=== PATIENT | female | born 1935 | race African-American/Black ===

== ENCOUNTER 2018-01-27 08:57 | Outpatient (CLI) | payer MEDICARE, MEDICAID ==
--- NOTE | 2018-01-27 14:59 | MRI ---
MRI OF CERVICAL SPINE WITHOUT CONTRAST: Date: 01/27/18 HISTORY: Chronic neck pain radiating down the left arm and shoulder for 4-6 months. TECHNIQUE: Multiplanar, multisequence MR images were obtained of the cervical spine without contrast. FINDINGS: Generalized disc desiccation is seen. The vertebral bodies demonstrate normal height and alignment wi thout acute fracture or subluxation. The visualized cord demonstrates normal signal throughout. The craniocervical junction is unremarkabl e. The prevertebral and paraspinal soft tissues are unremarkable. C2-3: A small disc osteophyte complex is seen. No posterior facet arthrosis. Mild central canal sten osis. Mild right and moderate left neural foraminal stenosis. C3-4: A moderate disc osteophyte complex is associated with a superimposed central protrusion. Mild bilateral posterior facet arthrosis. Severe central canal stenosis. Moderate to severe bilateral neur al foraminal stenosis. C4-5: No significant bulge or protrusion. No posterior facet arthrosis. No central canal stenosis. N o neural foraminal stenosis. C5-6: A small disc osteophyte complex is seen. Mild left posterior facet arthrosis. Mild central can al stenosis. Moderate to severe left neural foraminal stenosis. Mild right neural foraminal stenosis. C6-7: A small disc osteophyte complex is seen. No posterior facet arthrosis. Mild central canal sten osis. Moderate right and mild left neural foraminal stenosis. C7-T1: A minimal generalized concentric disc bulge is associated with a disc osteophyte complex. No posterior facet arthrosis. No central canal stenosis. No neural foraminal stenosis. IMPRESSION: Degenerative changes of the cervical spine as above. POS: CET
== END 2018-01-27 08:58 | disposition home or self-care (01) ==
LOC: SCSMRI 08:57
PROVIDERS: ATTEND Psychiatry & Neurology Neurology
DX: M47.22 Other spondylosis with radiculopathy, cervical region (principal); G56.02 Carpal tunnel syndrome, left upper limb
CPT/HCPCS: 72141

== ENCOUNTER 2018-03-11 08:58 | Outpatient (CLI) | payer MEDICARE, MEDICAID ==
--- NOTE | 2018-03-11 14:29 | NM ---
NUCLEAR MEDICINE PARATHYROID SCINITIGRAPHY SPECT AND CT: Date: 03/11/18 HISTORY: 82-year-old female with primary hyperparathyroidism. TECHNIQUE: 25 mCi of technetium-99m sestamibi injected IV. Anterior, WHITMORE, and MALAGASY scintigraphic images of the upper chest, neck, and head, obtained immediately, at 1 hour, and at 2 hours. SPECT images obtained in 3 planes covering the same area. Noncontrast CT obtained, covering the same areas. SPECT-CT fusion images obtained. FINDINGS: There is a small focus of increased uptake on the immediate, 1 hour, and 2 hour scintigraphic images, in the region of the right hypopharynx. It is uncertain whether it is in the hypopharynx or in the r etropharyngeal space directly posterior to the hypopharynx, or the right prevertebral space. There is retained significantly increased activity involving much of the right lobe of the thyroid gl and. The left lobe of the thyroid gland has immediate uptake, but it washes out. IMPRESSION: 1. Two potential foci of parathyroid adenomas. 2. One of them is located either in the right hypopharynx, or more likely in the retropharyngeal spa ce directly posterior to the right hypopharynx (posterior to the right piriform sinus). This is a str mary candidate for ectopic parathyroid adenoma. 3. The other focus involves the right lobe of the thyroid gland, which could be a second parathyroid adenoma. POS: CARLY
== END 2018-03-11 08:59 | disposition home or self-care (01) ==
LOC: NM 08:58
PROVIDERS: ATTEND Internal Medicine Nephrology
DX: E83.52 Hypercalcemia (principal); E21.0 Primary hyperparathyroidism
CPT/HCPCS: 78072; A9500

== ENCOUNTER 2018-07-27 04:49 | Outpatient (CLI) | payer MEDICARE, MEDICAID ==
[2018-07-27 10:57] LABS: Hemoglobin 12.6 g/dL (12.0-16.0); Mean Corpuscular HGB CONC 33.4 g/dL (32.0-36.0); Mean Corpuscular Volume 86.8 fL (78.0-98.0); Mean Platelet Volume 8.2 fL (7.4-10.4); Platelet Count 239 thou/uL (130-400); RBC Distribution Width 13.1 % (11.5-14.5); Red Blood Cell (RBC) Count 4.34 mill/uL (4.20-5.40); White Blood Cell (WBC) Count 5.6 thou/uL (4.8-10.8)
[2018-07-27 11:27] LABS: Anion Gap 15 mmol/L (10-20); BUN (Urea Nitrogen) 27 mg/dL (9.8-20.1); Calc. Creatinine Clearance 0 mL/min (70-130); Calcium 10.2 mg/dL (7.8-10.44); Carbon Dioxide 25 mmol/L (23-31); Chloride 104 mmol/L (98-107); Estimated GFR-MDRD 27; Glucose 243 mg/dL (83-110); Potassium 4.9 mmol/L (3.5-5.1); Sodium 139 mmol/L (136-145)
== END 2018-07-27 04:50 | disposition home or self-care (01) ==
LOC: LABBT 04:49
PROVIDERS: ATTEND Neurological Surgery
DX: Z01.818 Encounter for other preprocedural examination (principal); M47.812 Spondylosis without myelopathy or radiculopathy, cervical region
CPT/HCPCS: 80048; 85027; 93005; 93010

== ENCOUNTER 2018-08-03 06:09 | Observation (INO) | payer MEDICARE, MEDICAID ==
--- NOTE | 2018-08-02 15:16 | HP ---
HISTORY OF PRESENT ILLNESS: Ms. Ramirez is a very pleasant 82-year-old woman, here for evaluation of cervical myelopathy via referral from Dr. Scruggs. Over the course of the last 8 months, she has been experiencing increased hand numbness and clumsiness as well as some increased gait unsteadiness. She has an MRI of her cervical spine revealing severe cervical canal stenosis associated with T2 signal change at C3-C4. PAST MEDICAL HISTORY: Significant for diabetes, COPD, heart disease, hypertension. CURRENT MEDICATIONS: Felodipine, carvedilol, atorvastatin, glimepiride, furosemide, sildenafil, ProAir. ALLERGIES: NO KNOWN DRUG ALLERGIES. PAST SURGICAL HISTORY: None listed. PHYSICAL EXAMINATION: The patient is alert and oriented x3. Negative Myranda's bilaterally. Gait is mildly unsteady. The digital dexterity is significantly reduced. ASSESSMENT: Cervical myelopathy. PLAN: Dr. Bolanos met with the patient, reviewed imaging, advocated for C3-C4 ACDF. He explained to the patient the risks, benefits, and alternatives to the procedure. The patient expressed understanding and elected to move forward with surgery as discussed. I do believe the patient is mentally competent and capable of making medical decisions for himself. We will move forward with surgery as planned. Job ID: [id number]
[2018-08-03] MEDS ORDERED: Thrombin 5000 UNITS/5 ML VIAL ONE (06:17)
[2018-08-03] MEDS ORDERED: Fentanyl 100 MCG/2 ML VIAL ONE (06:29)
[2018-08-03] MEDS ORDERED: Ondansetron PF 4 MG/2 ML Vial ONE (06:48)
[2018-08-03] MEDS ORDERED: Norepinephrine 4 MG/4 ML VIAL ONE (07:04)
[2018-08-03] MEDS ORDERED: Lidocaine 2% Jelly 5 ML TUBE ONE (07:04)
[2018-08-03] MEDS ORDERED: Phenylephrine HCL 10 MG/ML VIAL ONE (07:04)
[2018-08-03] MEDS ORDERED: Acetaminophen/Codeine 30-300mg Tablet ONE (09:34)
--- NOTE | 2018-08-03 13:10 | OP ---
DATE OF PROCEDURE: 08/03/2018 PRESS SECRETARY: Jono Le PA-C INDICATION: Prevent neurologic decline. DIAGNOSIS: Cervical spondylotic myelopathy with weakness, atrophy, and numbness. PROCEDURE PERFORMED: Anterior cervical diskectomy and fusion, C3-C4. ANESTHESIA: General. DESCRIPTION OF PROCEDURE: The patient was brought into the operating room and placed under general anesthesia. She was placed on table in the supine position. A transverse incision was planned over the lateral aspect of the neck on the right. After prepping and draping and after an appropriate preoperative pause, the incision was created. The underlying platysma muscle was identified and incised. A blunt tissue plane anterior to the sternocleidomastoid muscle was used to gain access to the prevertebral space. Self-retaining retractors were placed for optimal exposure. After confirming the appropriate level with C-arm fluoroscopy, an annulotomy was performed at the C3-C4 disk space. All disk material as well as anterior and posterior osteophytes were removed. The underlying spinal cord was decompressed. After completing the decompression, a 6-mm lordotic PEEK cage packed with allograft and autograft material was placed within the interbody space. An anterior cervical plate was then fashioned to the front of spine and secured with a total of 4 fixed screws. Midline and lateral structures were inspected and found to be free from significant trauma. The wound was irrigated. Hemostasis was maintained throughout. The wound was then closed in anatomic layers and a pressure dressing was applied. There were no known procedural complication. Job ID: [id number]
[2018-08-03 15:49] VITALS: BMI 18.4
[2018-08-03] MEDS ORDERED: diphenhydrAMINE 25 MG CAP PO PRN (16:12)
[2018-08-03] MEDS ORDERED: Acetaminophen 325 MG TAB PO PRN (16:12)
[2018-08-03] MEDS ORDERED: diphenhydrAMINE 50 MG/ML VIAL IVP PRN (16:12)
[2018-08-03] MEDS ORDERED: Acetaminophen/Codeine 30-300mg Tablet PO PRN ×2 (16:12)
[2018-08-03] MEDS ORDERED: Mag-Al 1200 mg/1200 mg/30 ML UDCUP PO PRN (16:12)
[2018-08-03] MEDS ORDERED: Acetaminophen 650 MG Suppository PR PRN (16:12)
[2018-08-03] MEDS ORDERED: Bisacodyl 10 MG SUPP PR PRN (16:12)
[2018-08-03] MEDS ORDERED: Morphine 4 MG/ML VIAL SLOW IVP PRN (16:12)
[2018-08-03] MEDS ORDERED: tiZANidine HCl 4 MG TAB PO PRN (16:13)
[2018-08-03] MEDS ORDERED: Ondansetron PF 4 MG/2 ML Vial IVP PRN (16:14)
[2018-08-03] MEDS ORDERED: Morphine 2 MG/ML SYRINGE SLOW IVP PRN (16:18)
[2018-08-03] MEDS: Sodium Chloride 0.9% 1,000 ML IV SCH (17:16)
[2018-08-03] MEDS ORDERED: PROVENTIL INHALER 6.7 G (200 INHALATIONS) INH PRN (17:26)
[2018-08-03] MEDS ORDERED: Dextrose 5% in Water 1,000 ML IV PRN (17:27)
[2018-08-03] MEDS ORDERED: HumaLOG 300 UNITS/3 ML VIAL SC PRN ×2 (17:27)
[2018-08-03] MEDS ORDERED: Dextrose 50% Abboject 50 ML SYRINGE SLOW IVP PRN (17:27)
[2018-08-03] MEDS: Sildenafil Citrate 20 MG TAB PO SCH (20:20)
[2018-08-03] MEDS: hydrALAZINE 25 MG TAB PO SCH (20:20)
[2018-08-03] MEDS: Carvedilol 25 MG TAB PO SCH (20:21)
[2018-08-03] MEDS: Atorvastatin Calcium 40 MG TAB PO SCH (20:21)
[2018-08-03] MEDS ORDERED: CEFAZOLIN 2 GM in Premix Bag 1 BAG IVPB SCH (23:00)
[2018-08-04] MEDS: Sodium Chloride 0.9% 1,000 ML IV SCH ×2 (06:04→19:00)
--- NOTE | 2018-08-04 07:03 | CON ---
DATE OF CONSULTATION: REASON FOR CONSULTATION: This is a consultation from Dr. Bolanos for medical management. HISTORY OF PRESENT ILLNESS: This patient is an 82-year-old female with a history of diabetes, hypertension, hyperlipidemia, chronic kidney disease, who has undergone anterior cervical decompression secondary to cervical spinal stenosis with bilateral upper extremity radiculopathy. The patient is doing well. Reports that she is having a little bit of pain with swallowing, but otherwise has no significant complaints and anticipates going to rehab tomorrow. REVIEW OF SYSTEMS: The patient reports that she has had some decrease in urine output overtime and her throat pain. All other systems were reviewed and all pertinent positives and negatives noted in the HPI. PAST MEDICAL HISTORY: Diabetes, hypertension, hyperlipidemia, and chronic kidney disease, which appears to be stage 4, followed by Dr. Knapp and a history of congestive heart failure, although there is no recent echocardiogram in the record system to confirm whether this is systolic, diastolic or otherwise. PAST SURGICAL HISTORY: Partial colon resection for colon cancer. FAMILY HISTORY: Both parents had coronary artery disease and congestive heart failure. SOCIAL HISTORY: Nonsmoker, nondrinker, nondrug user. She appears to be full code. HOME MEDICATIONS: Include; 1. Vitamin D3. 2. ProAir HFA. 3. Hydralazine. 4. Aspirin. 5. Glipizide. 6. Sildenafil. 7. Coreg. 8. Felodipine. 9. Atorvastatin. 10. Here, she is also receiving some tizanidine and morphine. PHYSICAL EXAMINATION: VITAL SIGNS: Temperature is 97.9, pulse 75, respirations 16, O2 saturation 97% on room air, and blood pressure is 115/59. GENERAL APPEARANCE: Age-appropriate female, in no distress. Awake, alert, oriented, pleasant, and cooperative. HEENT: PERRL. No OP lesions. NECK: There is a dressing over the right neck. HEART: Regular with 1 to 2/6 murmur at the left lower sternal border. LUNGS: Clear to auscultation bilaterally with good chest wall expansion and air exchange. ABDOMEN: Soft, nontender, and nondistended. Positive bowel sounds. No masses. No organomegaly. EXTREMITIES: No cyanosis, clubbing, or edema. LABORATORY DATA: Blood sugars 179 to 217. IMPRESSION AND PLAN: 1. Postoperative anterior cervical decompression, doing well with mild dysphagia, which was just treated with medication. We will likely improve over the following days. 2. Cervical radiculopathy post surgery, will go to rehab. 3. Diabetes mellitus. The patient is back on her usual home medications, appears to be stable with those. 4. Chronic kidney disease, stage 4. She appears to be at her baseline renal function. 5. Hypertension. Resuming home medications including the hydralazine, Coreg, and felodipine. 6. Hyperlipidemia, stable on atorvastatin. We will continue to follow. Job ID: [id number]
[2018-08-04] MEDS: Carvedilol 25 MG TAB PO SCH ×2 (09:21→20:17)
[2018-08-04] MEDS: glipiZIDE 5 MG TAB PO SCH (09:21)
[2018-08-04] MEDS: Sildenafil Citrate 20 MG TAB PO SCH ×3 (09:23→20:18)
[2018-08-04] MEDS: hydrALAZINE 25 MG TAB PO SCH ×2 (09:28→20:18)
--- NOTE | 2018-08-04 11:07 | PRG ---
DATE OF SERVICE: 08/04/2018 Ms. Ramirez this morning is doing very well. She has some mild throat soreness, but feels that is improved after some throat lozenges. She has some numbness in her hands, which is unexpected. At the present time, our plan is to try to get her over to inpatient rehab. Case Management submitted the request and referral to [facility] yesterday, so hopefully we can get this done before the end of the week to get her over there. Rehab has already seen her and it appears accepted her as a patient. We are just awaiting the final decision from Medicare. Job ID: [id number]
--- NOTE | 2018-08-04 11:23 | PDOC.PN ---
- Subjective Encounter Start Date: 08/04/18 Encounter Start Time: 07:15 -: old records requested/rev pt has routine post operative pain at surgical site, no fever, Patient seen and examined. No overnight events she has minor parasthesia both upper extremity - Objective MAR Reviewed: Yes Vital Signs & Weight: Vital Signs (12 hours) Temp Pulse Pulse Resp BP BP BP 08/04/18 09:28 73 125/58 L 08/04/18 09:22 73 125/58 L 08/04/18 08:54 156/69 H 08/04/18 08:28 73 125/58 L 08/04/18 08:15 98.0 F 73 18 125/58 L 08/04/18 03:41 97.9 F 75 16 115/59 L 08/03/18 23:23 98.0 F 77 16 115/59 L Pulse Ox 08/04/18 09:28 08/04/18 09:22 08/04/18 08:54 08/04/18 08:28 08/04/18 08:15 92 L 08/04/18 03:41 97 08/03/18 23:23 96 Weight Weight 101 lb I&O: 08/03/18 08/04/18 08/05/18 06:59 06:59 06:59 Intake Total 1670 Balance 1670 Additional Labs: Accuchecks 08/04/18 08/04/18 08/03/18 11:10 06:07 19:16 POC Glucose 93 82 179 H 08/03/18 14:25 POC Glucose 217 H Phys Exam - Physical Examination Constitutional: NAD HEENT: PERRLA, moist MMs, sclera anicteric Neck: no JVD, supple surgical site with dressing Respiratory: no wheezing, no rales, no rhonchi Cardiovascular: RRR, no significant murmur, no rub Gastrointestinal: soft, non-tender, no distention, positive bowel sounds Musculoskeletal: no edema, pulses present Neurological: non-focal, normal sensation, moves all 4 limbs Lymphatic: no nodes Psychiatric: normal affect, A&O x 3 Skin: no rash, normal turgor Dx/Plan (1) Cervical myelopathy Code(s): G95.9 - DISEASE OF SPINAL CORD, UNSPECIFIED Status: Acute (2) S/P cervical discectomy Code(s): Z98.890 - OTHER SPECIFIED POSTPROCEDURAL STATES Status: Acute (3) CKD (chronic kidney disease), stage IV Code(s): N18.4 - CHRONIC KIDNEY DISEASE, STAGE 4 (SEVERE) Status: Chronic (4) Diabetes type 2, controlled Code(s): E11.9 - TYPE 2 DIABETES MELLITUS WITHOUT COMPLICATIONS Status: Chronic (5) Dyslipidemia Code(s): E78.5 - HYPERLIPIDEMIA, UNSPECIFIED Status: Chronic (6) Hypertension Code(s): I10 - ESSENTIAL (PRIMARY) HYPERTENSION Status: Chronic - Plan cont current plan of care, PT/OT, social services director, DVT proph w/SCDs * her home meds reconciled * medically stable * rehab process has been started * waiting for insurance approval * pain controlled * code status: full code. Review of Systems - Review of Systems Eyes: negative: Pain, Vision Change, Conjunctivae Inflammation, Eyelid Inflammation, Redness, Other ENT: negative: Ear Pain, Ear Discharge, Nose Pain, Nose Discharge, Nose Congestion, Mouth Pain, Mouth Swelling, Throat Pain, Throat Swelling, Other Respiratory: negative: Cough, Dry, Shortness of Breath, Hemoptysis, SOB with Excertion, Pleuritic Pain, Sputum, Wheezing Cardiovascular: negative: chest pain, palpitations, orthopnea, paroxysmal nocturnal dyspnea, edema, light headedness, other Gastrointestinal: negative: Nausea, Vomiting, Abdominal Pain, Diarrhea, Constipation, Melena, Hematochezia, Other Genitourinary: negative: Dysuria, Frequency, Incontinence, Hematuria, Retention , Other Musculoskeletal: Neck Pain. negative: Shoulder Pain, Arm Pain, Back Pain, Hand Pain, Leg Pain, Foot Pain, Other - Medications/Allergies Allergies/Adverse Reactions: Allergies Allergy/AdvReac Type Severity Reaction Status Date / Time diphenhydramine Allergy "out of my Verified 07/27/18 09:47 head" metformin Allergy Verified 07/27/18 09:47 Medications: Current Medications Acetaminophen (Tylenol) 650 mg PO Q4H PRN PRN Reason: Headache/Fever or Pain(1-3) Acetaminophen (Tylenol) 650 mg [place] Q4H PRN PRN Reason: Headache/Fever or Pain(1-3) Acetaminophen/Codeine Phosphate (Tylenol #3) 1 tab PO Q3H PRN PRN Reason: PAIN (1-3) Acetaminophen/Codeine Phosphate (Tylenol #3) 2 tab PO Q3H PRN PRN Reason: PAIN (4-6) Last Admin: 08/04/18 03:40 Dose: 2 tab Al Hydroxide/Mg Hydroxide (Maalox) 30 ml PO Q4H PRN PRN Reason: Heartburn or Indigestion Albuterol Sulfate (Proventil Hfa) 2 puff INH DAILYPRN PRN PRN Reason: SOB &/or Wheezing Atorvastatin Calcium (Lipitor) 40 mg PO HS [facility] Last Admin: 08/03/18 20:21 Dose: 40 mg Bisacodyl (Dulcolax) 10 mg [place] Q12H PRN PRN Reason: Constipation Carvedilol (Coreg) 25 mg PO BID [facility] Last Admin: 08/04/18 09:21 Dose: 25 mg Dextrose/Water (Dextrose 50%) 25 gm SLOW IVP PRN PRN PRN Reason: Hypoglycemia Diphenhydramine HCl (Benadryl) 25 mg PO Q6H PRN PRN Reason: Itching Diphenhydramine HCl (Benadryl) 25 mg IVP Q6H PRN PRN Reason: Itching Felodipine (Plendil) 5 mg PO QAM [facility] Last Admin: 08/04/18 09:22 Dose: 5 mg Glipizide (Glucotrol) 5 mg PO DAILY-AC [facility] Last Admin: 08/04/18 09:21 Dose: 5 mg Glucagon (Glucagon) 1 mg IM PRN PRN PRN Reason: Hypoglycemia Hydralazine HCl (Apresoline) 100 mg PO BID [facility] Last Admin: 08/04/18 09:28 Dose: Not Given Sodium Chloride (Normal Saline 0.9%) 1,000 mls @ 75 mls/hr IV .[id number] [facility] Last Admin: 08/04/18 06:04 Dose: 1,000 mls Dextrose/Water (D5w) 1,000 mls @ 0 mls/hr IV .Q0M PRN PRN Reason: Hypoglycemia Insulin Human Lispro (Humalog) 0 units SC .MILD SLIDING SCALE PRN PRN Reason: Mild Correctional Scale Insulin Human Lispro (Humalog) 0 units SC .BEDTIME SLIDING SC PRN PRN Reason: Bedtime Correctional Scale Morphine Sulfate (Morphine) 4 mg SLOW IVP Q1H PRN PRN Reason: SEVERE BREAKTHROUGH PAIN Morphine Sulfate (Morphine) 2 mg SLOW IVP Q1H PRN PRN Reason: Moderate Breakthrough Pain Ondansetron HCl (Zofran) 4 mg IVP Q6H PRN PRN Reason: Nausea/Vomiting Sildenafil Citrate (Revatio) 20 mg PO TID [facility] Last Admin: 08/04/18 09:23 Dose: 20 mg Sodium Chloride (Flush - Normal Saline) 10 ml IVF PRN PRN PRN Reason: Saline Flush Tizanidine HCl (Zanaflex) 2 mg PO Q12H PRN PRN Reason: MUSCLE SPASM
[2018-08-04] MEDS ORDERED: Rocuronium Bromide 10 MG/ML (10ML VIAL) ONE (13:52)
[2018-08-04] MEDS ORDERED: ePHEDrine 50 MG/ML VIAL ONE (13:52)
[2018-08-04] MEDS ORDERED: Lidocaine 1% PF 5 ML VIAL ONE (13:52)
[2018-08-04] MEDS ORDERED: Glycopyrrolate 0.2 MG/ML 5 ML SYRINGE ONE (13:52)
[2018-08-04] MEDS ORDERED: Norepinephrine 4 MG/4 ML VIAL ONE (13:52)
[2018-08-04] MEDS ORDERED: PROPOFOL 200 MG/20 ML VIAL ONE (13:52)
[2018-08-04] MEDS: Atorvastatin Calcium 40 MG TAB PO SCH (20:16)
[2018-08-05] MEDS: Sildenafil Citrate 20 MG TAB PO SCH ×2 (08:32→16:00)
[2018-08-05] MEDS: Carvedilol 25 MG TAB PO SCH (08:32)
[2018-08-05] MEDS: glipiZIDE 5 MG TAB PO SCH (08:32)
[2018-08-05] MEDS: hydrALAZINE 25 MG TAB PO SCH (08:32)
[2018-08-05] MEDS: Sodium Chloride 0.9% 1,000 ML IV SCH (08:33)
--- NOTE | 2018-08-05 11:07 | PDOC.PN ---
- Subjective Encounter Start Date: 08/05/18 Encounter Start Time: 07:15 Patient seen and examined. No new complaints. No overnight events - Objective Resuscitation Status - Order Detail: 08/04/18 11:25 Resuscitation Status Routine Resuscitation Status: FULL: Full Resuscitation MAR Reviewed: Yes Vital Signs & Weight: Vital Signs (12 hours) Temp Pulse Resp BP Pulse Ox 08/05/18 08:45 98.0 F 79 16 103/53 L 91 L 08/05/18 08:32 75 08/05/18 04:00 99.3 F 75 18 131/59 L 92 L 08/05/18 00:00 98.5 F 79 18 111/55 L 92 L Weight Admit Weight 101 lb Weight 101 lb I&O: 08/04/18 08/05/18 08/06/18 06:59 06:59 06:59 Intake Total 1670 1180 Output Total 2 Balance 1670 1178 Additional Labs: Accuchecks 08/05/18 08/04/18 08/04/18 05:42 19:57 17:06 POC Glucose 75 155 H 115 H 08/04/18 11:10 POC Glucose 93 Phys Exam - Physical Examination Constitutional: NAD HEENT: PERRLA, moist MMs, sclera anicteric Neck: no JVD, supple Respiratory: no wheezing, no rales, no rhonchi Cardiovascular: RRR, no significant murmur, no rub Gastrointestinal: soft, non-tender, no distention, positive bowel sounds Musculoskeletal: no edema, pulses present Neurological: non-focal, normal sensation, moves all 4 limbs Lymphatic: no nodes Psychiatric: normal affect, A&O x 3 Skin: no rash, normal turgor Dx/Plan (1) Cervical myelopathy Code(s): G95.9 - DISEASE OF SPINAL CORD, UNSPECIFIED Status: Acute (2) S/P cervical discectomy Code(s): Z98.890 - OTHER SPECIFIED POSTPROCEDURAL STATES Status: Acute (3) CKD (chronic kidney disease), stage IV Code(s): N18.4 - CHRONIC KIDNEY DISEASE, STAGE 4 (SEVERE) Status: Chronic (4) Diabetes type 2, controlled Code(s): E11.9 - TYPE 2 DIABETES MELLITUS WITHOUT COMPLICATIONS Status: Chronic (5) Dyslipidemia Code(s): E78.5 - HYPERLIPIDEMIA, UNSPECIFIED Status: Chronic (6) Hypertension Code(s): I10 - ESSENTIAL (PRIMARY) HYPERTENSION Status: Chronic - Plan cont current plan of care, PT/OT, 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 Review of Systems - Review of Systems ENT: negative: Ear Pain, Ear Discharge, Nose Pain, Nose Discharge, Nose Congestion, Mouth Pain, Mouth Swelling, Throat Pain, Throat Swelling, Other Respiratory: negative: Cough, Dry, Shortness of Breath, Hemoptysis, SOB with Excertion, Pleuritic Pain, Sputum, Wheezing Cardiovascular: negative: chest pain, palpitations, orthopnea, paroxysmal nocturnal dyspnea, edema, light headedness, other Gastrointestinal: negative: Nausea, Vomiting, Abdominal Pain, Diarrhea, Constipation, Melena, Hematochezia, Other Genitourinary: negative: Dysuria, Frequency, Incontinence, Hematuria, Retention , Other Musculoskeletal: negative: Neck Pain, Shoulder Pain, Arm Pain, Back Pain, Hand Pain, Leg Pain, Foot Pain, Other Skin: negative: Rash, Lesions, David, Bruising, Other - Medications/Allergies Allergies/Adverse Reactions: Allergies Allergy/AdvReac Type Severity Reaction Status Date / Time diphenhydramine Allergy "out of my Verified 07/27/18 09:47 head" metformin Allergy Verified 07/27/18 09:47 Medications: Current Medications Acetaminophen (Tylenol) 650 mg PO Q4H PRN PRN Reason: Headache/Fever or Pain(1-3) Last Admin: 08/05/18 05:00 Dose: 650 mg Acetaminophen (Tylenol) 650 mg [place] Q4H PRN PRN Reason: Headache/Fever or Pain(1-3) Acetaminophen/Codeine Phosphate (Tylenol #3) 1 tab PO Q3H PRN PRN Reason: PAIN (1-3) Acetaminophen/Codeine Phosphate (Tylenol #3) 2 tab PO Q3H PRN PRN Reason: PAIN (4-6) Last Admin: 08/04/18 03:40 Dose: 2 tab Al Hydroxide/Mg Hydroxide (Maalox) 30 ml PO Q4H PRN PRN Reason: Heartburn or Indigestion Albuterol Sulfate (Proventil Hfa) 2 puff INH DAILYPRN PRN PRN Reason: SOB &/or Wheezing Atorvastatin Calcium (Lipitor) 40 mg PO HS [facility] Last Admin: 08/04/18 20:16 Dose: 40 mg Bisacodyl (Dulcolax) 10 mg [place] Q12H PRN PRN Reason: Constipation Carvedilol (Coreg) 25 mg PO BID [facility] Last Admin: 08/05/18 08:32 Dose: 25 mg Dextrose/Water (Dextrose 50%) 25 gm SLOW IVP PRN PRN PRN Reason: Hypoglycemia Diphenhydramine HCl (Benadryl) 25 mg PO Q6H PRN PRN Reason: Itching Diphenhydramine HCl (Benadryl) 25 mg IVP Q6H PRN PRN Reason: Itching Felodipine (Plendil) 5 mg PO QAM [facility] Last Admin: 08/05/18 08:32 Dose: 5 mg Glipizide (Glucotrol) 5 mg PO DAILY-AC [facility] Last Admin: 08/05/18 08:32 Dose: 5 mg Glucagon (Glucagon) 1 mg IM PRN PRN PRN Reason: Hypoglycemia Hydralazine HCl (Apresoline) 100 mg PO BID [facility] Last Admin: 08/05/18 08:32 Dose: 100 mg Sodium Chloride (Normal Saline 0.9%) 1,000 mls @ 75 mls/hr IV .[id number] [facility] Last Admin: 08/05/18 08:33 Dose: 1,000 mls Dextrose/Water (D5w) 1,000 mls @ 0 mls/hr IV .Q0M PRN PRN Reason: Hypoglycemia Insulin Human Lispro (Humalog) 0 units SC .MILD SLIDING SCALE PRN PRN Reason: Mild Correctional Scale Insulin Human Lispro (Humalog) 0 units SC .BEDTIME SLIDING SC PRN PRN Reason: Bedtime Correctional Scale Morphine Sulfate (Morphine) 4 mg SLOW IVP Q1H PRN PRN Reason: SEVERE BREAKTHROUGH PAIN Morphine Sulfate (Morphine) 2 mg SLOW IVP Q1H PRN PRN Reason: Moderate Breakthrough Pain Ondansetron HCl (Zofran) 4 mg IVP Q6H PRN PRN Reason: Nausea/Vomiting Sildenafil Citrate (Revatio) 20 mg PO TID [facility] Last Admin: 08/05/18 08:32 Dose: 20 mg Sodium Chloride (Flush - Normal Saline) 10 ml IVF PRN PRN PRN Reason: Saline Flush Tizanidine HCl (Zanaflex) 2 mg PO Q12H PRN PRN Reason: MUSCLE SPASM Last Admin: 08/04/18 17:22 Dose: 2 mg
--- NOTE | 2018-08-05 11:08 | PRG ---
DATE OF SERVICE: 08/05/2018 Ms. Ramirez is postop day 2 following ACDF and we are currently awaiting insurance approval for inpatient rehab. She is doing mostly well. All the soreness in her throat has improved. She still has some slight paresthesias in the hands and clumsiness, although this was definitively there prior to surgery. To me, it almost looks like it has improved ever so slightly because she is able to use the bedside phone when a call comes in during our discussion. For now, the plan is to try to get her over that today. I will follow up with Case Management over the course of the day to see if this is a feasible process. If not, we will go into the weekend, but again hopefully we will be able to get her over there this afternoon. Job ID: [id number]
--- NOTE | 2018-08-05 12:03 | DIS ---
DATE OF ADMISSION: 08/03/2018 DATE OF DISCHARGE: 08/05/2018 DISCHARGE DISPOSITION: Rehab. PRIMARY DISCHARGE DIAGNOSIS: Cervical spondylotic myelopathy, status post anterior cervical diskectomy and fusion, C3-C4. SECONDARY DISCHARGE DIAGNOSES: 1. Chronic kidney disease, stage 4. 2. Diabetes, type 2. 3. Hypertension. 4. Dyslipidemia. PRIMARY PROCEDURE/OPERATION: Anterior cervical diskectomy and fusion, C3-C4. RADIOLOGICAL INVESTIGATION: None. SIGNIFICANT LABS: None. DISCHARGE MEDICATIONS: 1. ProAir HFA 2 puffs q.6 hourly p.r.n. 2. Lipitor 40 mg p.o. at bedtime. 3. Coreg 25 mg b.i.d. 4. Vitamin D3 of 3000 units p.o. daily. 5. Felodipine ER 5 mg daily. 6. Glipizide 5 mg daily. 7. Hydralazine 100 mg b.i.d. 8. Sildenafil 20 mg b.i.d. 9. Zanaflex 2 mg q.12 hourly p.r.n. 10. The patient will resume aspirin when neurosurgeon okayed. CONTRAINDICATION: None. CODE STATUS: Full code. INPATIENT MACHINE STUFFER AUTOMATIC: Dr. Tylor Bolanos was primary while in hospital. [facility] Team was consulted for medical comanagement. TEST RESULTS PENDING ON DISCHARGE: None. ALLERGIES: BENADRYL AND METFORMIN. DISCHARGE PLAN: Posthospital, the patient is planned for discharge to rehab. Subsequently, the patient will follow up with Dr. Bolanos as instructed. HOSPITAL COURSE: An 82-year-old female, who was electively admitted by Dr. Bolanos. The patient has underlying cervical myelopathy with weakness, atrophy, and numbness in the upper extremity. The patient underwent anterior cervical diskectomy and fusion at C3-C4 level. Postoperatively, the patient was evaluated by [facility] Team for medical comanagement. We resumed the patient's home medication while in hospital as well as on discharge. The patient was requiring rehabilitation and that is why with help of residential case manager, we are waiting for rehab approval. Once rehab approved, then the patient will be discharged to correction versus rehab. The patient is seen and examined at the bedside today. Please see my progress note from today for further details. Job ID: [id number]
[2018-08-05 19:39] VITALS: BP 135/63; TEMP 97.9
== END 2018-08-05 20:22 ==
LOC: SDC 06:09 → ONC 12:15
PROVIDERS: ADMIT Neurological Surgery; ATTEND Neurological Surgery
PROC: 0RG10A0 Fusion of Cervical Vertebral Joint with Interbody Fusion Device, Anterior Approach, Anterior Column, Open Approach (ICD-10-PCS; principal; 2018-08-03)
PROC: 0RT30ZZ Resection of Cervical Vertebral Disc, Open Approach (ICD-10-PCS; 2018-08-03)
DX: M47.12 Other spondylosis with myelopathy, cervical region (principal); M48.02 Spinal stenosis, cervical region; J44.9 Chronic obstructive pulmonary disease, unspecified; E78.5 Hyperlipidemia, unspecified; I13.0 Hypertensive heart and chronic kidney disease with heart failure and stage 1 through stage 4 chronic kidney disease, or unspecified chronic kidney disease; E11.22 Type 2 diabetes mellitus with diabetic chronic kidney disease; N18.4 Chronic kidney disease, stage 4 (severe); I50.32 Chronic diastolic (congestive) heart failure; M10.9 Gout, unspecified; I25.10 Atherosclerotic heart disease of native coronary artery without angina pectoris; Z85.038 Personal history of other malignant neoplasm of large intestine; Z87.891 Personal history of nicotine dependence; Z79.82 Long term (current) use of aspirin; Z79.84 Long term (current) use of oral hypoglycemic drugs; Z79.899 Other long term (current) drug therapy; Z88.8 Allergy status to other drugs, medicaments and biological substances
CPT/HCPCS: 20930; 20936; 22551; 22845; 22853; 76000; 82962 ×3; 96360; 96361 ×2; 97116; 97139 ×3; 97530; C1713; C1776; G0378; 36416; J0690; J2001; J2370; J2405; J2704; J3010; J3490

== ENCOUNTER → 2019-08-04 | Day surgery (SDC) | payer MEDICARE, MEDICAID, OTHER ==
[~2019-08-04] MED LIST: Bupivacaine PF 0.5% 30 ML VIAL ONE; Fentanyl 100 MCG/2 ML VIAL ONE; Heparin 10,000 UNITS/1 ML VIAL ONE; Lidocaine 1% PF 5 ML VIAL ONE; Lidocaine 1% w/Epinephrine 1:100K 20 ML VIAL ONE; PROPOFOL 200 MG/20 ML VIAL ONE; Sodium Chloride 0.9% 20 ML ONE
[2019-08-04 13:24] LABS: #Lymphocytes 1.1 thou/uL (1.20-3.40); #Monocytes 0.9 thou/uL (0.11-0.59); #Neutrophils 7.3 thou/uL (1.40-6.50); %Basophils 0.4 % (0.0-1.0); %Eosinophils 0.4 % (0.0-10.0); %Lymphocytes 11.5 % (21.0-51.0); %Monocytes 9.4 % (0.0-10.0); %Neutrophils 78.3 % (42.0-75.0); Hemoglobin 9.2 g/dL (12.0-16.0); Mean Corpuscular HGB CONC 32.9 g/dL (32.0-36.0); Mean Corpuscular Hemoglobin 29.7 pg (27.0-31.0); Mean Corpuscular Volume 90.4 fL (78.0-98.0); Mean Platelet Volume 7.6 fL (7.4-10.4); Platelet Count 370 thou/uL (130-400); RBC Distribution Width 14.8 % (11.5-14.5); Red Blood Cell (RBC) Count 3.08 mill/uL (4.20-5.40); White Blood Cell (WBC) Count 9.4 thou/uL (4.8-10.8)
[2019-08-04 13:44] LABS: Anion Gap 17 mmol/L (10-20); BUN (Urea Nitrogen) 47 mg/dL (9.8-20.1); Calc. Creatinine Clearance 0 mL/min (70-130); Calcium 9.1 mg/dL (7.8-10.44); Carbon Dioxide 26 mmol/L (23-31); Chloride 102 mmol/L (98-107); Estimated GFR-MDRD 16; Glucose 113 mg/dL (83-110); Potassium 4.7 mmol/L (3.5-5.1); Sodium 140 mmol/L (136-145)
--- NOTE | 2019-08-04 13:47 | RAD ---
RADIOGRAPH CHEST 2 VIEW: DATE: 08/04/2019 HISTORY: 83-year-old female for preprocedure old clearance FINDINGS: There is hyperinflation of the lungs, consistent with COPD. There is no evidence of airspace density, pulmonary edema, cardiomegaly, pleural effusion, or pneumothorax. Right IJ double lumen dialysis catheter with distal tips at SVC. IMPRESSION: 1) No acute cardiopulmonary findings. 2) emphysema.
--- NOTE | 2019-08-04 15:59 | ULT ---
ULTRASOUND VESSEL MAPPING DIALYSIS ACCESS BILATERAL UPPER EXTREMITY ARTERIAL AND VENOUS DOPPLER: 08/04/19 HISTORY: Predialysis vessel evaluation. COMPARISON: None. FINDINGS: Real time middleton scale, color Doppler and spectral analysis bilateral upper extremity venous arterial s ystem was performed. The bilateral subclavian and internal jugular veins are patent. RIGHT UPPER EXTREMITY BRACHIAL ARTERY: 0.36 cm RADIAL ARTERY: 0.18 cm ULNAR ARTERY: 0.17 cm CEPHALIC VEIN Proximal Arm: 0.1 cm Mid Arm: 0.06 cm Distal Arm: 0.1 cm Antecubital Fossa: 0.16 cm Proximal Forearm: 0.06 cm Mid Forearm: 0.08 cm Distal Forearm: 0.07 cm BASILIC VEIN Proximal Arm: 0.21 cm Mid Arm: 0.18 cm Distal Arm: 0.21 cm Antecubital Fossa: 0.21 cm Proximal Forearm: 0.13 cm Mid Forearm: 0.09 cm Distal Forearm: 0.08 cm LEFT UPPER EXTREMITY BRACHIAL ARTERY: 0.33 cm RADIAL ARTERY: 0.16 cm ULNAR ARTERY: 0.13 cm CEPHALIC VEIN Proximal Arm: 0.11 cm Mid Arm: 0.16 cm Distal Arm: 0.12 cm Antecubital Fossa: 0.12 cm Proximal Forearm: 0.06 cm Mid Forearm: 0.09 cm Distal Forearm: 0.05 cm BASILIC VEIN Proximal Arm: 0.46 cm Mid Arm: 0.23 cm Distal Arm: 0.14 cm Antecubital Fossa: 0.23 cm Proximal Forearm: 0.10 cm Mid Forearm: 1.00 cm Distal Forearm: 0.07 cm IMPRESSION: 1. Patent bilateral subclavian and internal jugular veins. 2. Vascular size as above. POS: HOME
--- NOTE | 2019-08-04 20:06 | RAD ---
SIGNLE VIEW OF THE CHEST: 08/04/19 COMPARISON: 12/26/18 HISTORY: Postoperative hemodialysis catheter placement. Code Blue. FINDINGS: Single view of the chest shows a normal sized cardiomediastinal silhouette. There is a right IJ dialy sis catheter with its tip in the superior vena cava. No pneumothorax is seen. Lucency projecting over the left lung likely represents a skin fold as lung markings are seen peripheral to this lucency. No pleural effusion or consolidation are seen. IMPRESSION: Status post dialysis catheter placement without evidence of complication. POS: HERNAND[facility]
--- NOTE | 2019-08-04 23:44 | HP ---
HISTORY OF PRESENT ILLNESS: An 83-year-old female, diabetic hypertensive nephropathy, had a hemodialysis catheter, right IJ placed at [facility], Dr. Montesinos. This has ceased to work. She presents to me for replacement of her hemodialysis catheter. She dialyzes at [facility] Wednesday, , Wednesday, followed by Dr. Knapp. ALLERGIES: SHE IS ALLERGIC TO METFORMIN AND BENADRYL. SOCIAL HISTORY: Tobacco, none for many years. Alcohol, none. The patient lives with her family and with her children. PAST SURGICAL HISTORY: Colon cancer resection, Dr. Ken Lopez in 2008, sigmoid colon, radiation chemotherapy not indicated or necessary. She had spine surgery in the past. PAST MEDICAL HISTORY: Diabetes mellitus, on oral hypoglycemics, hypertension, elevated cholesterol. She is followed by Dr. Sami Thomas and 4-5 months ago she saw him last. She has appointment to see him in the next 1 or 2 months. She has past history of coronary artery stents in 2018 without myocardial infarction. REVIEW OF SYSTEMS: Ten-point noncontributory. The patient reports today for removal of old and placement of new hemodialysis catheter. Ultrasound vein mapping has been ordered and results pending. Plan is for scheduling an outpatient dialysis access in her arm in the next week or two. This will be scheduled on a nondialysis day. She understands risks and benefits of the procedure and consents. PHYSICAL EXAMINATION: VITAL SIGNS: Temperature 97.5, pulse 65, respiratory rate 18, blood pressure 200/80, oxygen saturation 97%. HEAD, EARS, EYES, NOSE, AND THROAT: Unremarkable. LUNGS: Clear to auscultation. CARDIAC: Regular rate and rhythm without murmur or gallop. ABDOMEN: Soft and nontender. Palpable radial pulses bilaterally. I believe I can identify a vein in her antecubital area. She does not have well-defined veins in her wrist. Hemodialysis catheter right IJ exit right chest. LABORATORY DATA: EKG obtained. White count 9 and hemoglobin 9. Sodium 140, potassium 4.7, BUN 47, creatinine 3.26. ASSESSMENT AND PLAN: 1. Dysfunctional hemodialysis catheter, remove old, place new. 2. We will need future dialysis access. We will plan outpatient next week, regional and TIVA. 3. Diabetes mellitus. 4. Hypertension. Job ID: [id number]
--- NOTE | 2019-08-05 00:08 | OP ---
DATE OF PROCEDURE: 08/04/2019 PREOPERATIVE DIAGNOSES: End-stage renal disease, dysfunctional right internal jugular cuff tunneled dialysis catheter placed at [facility] a week ago, in need of permanent dialysis access. POSTOPERATIVE DIAGNOSES: End-stage renal disease, dysfunctional right internal jugular cuff tunneled dialysis catheter placed at [facility] a week ago, in need of permanent dialysis access. PROCEDURE PERFORMED: Removal of old right internal jugular cuff tunneled dialysis catheter and placement of new right internal jugular cuff tunneled dialysis catheter. Fluoroscopy used. ANESTHESIA: TIVA, local 0.5% Marcaine 30 mL mixed with 1% Xylocaine with epinephrine 20 mL. DESCRIPTION OF PROCEDURE: The patient was taken to the operating room where under intravenous sedation, neck and chest, and dialysis catheter prepared with ChloraPrep and draped in routine fashion. Local anesthetic was infiltrated in the skin and subcutaneous tissue about the operative site. Incision was made in the right side of the neck and old dialysis catheter dissected free beneath the platysma, controlled with a hemostatic clamp, transected old hemodialysis catheter stump removed. Area prepared with ChloraPrep again. A new exit site created with a stab incision. Using the tunneling device, the pre-curved [employer] cuffed tunneled hemodialysis catheter tunneled between 2 incisions, placed a fabric cuff beneath the skin exit site and catheter secured with 2 interrupted sutures of 3-0 nylon. Sterile dressing was applied. Dilator and Peel-Away Sheath placed over the J-wire, which had been placed through the old dialysis catheter, which was removed. The dilator and J-wire removed. The catheter placed through the Peel-Away sheath. Peel-away sheath removed. Catheter noted to be in good position fluoroscopically and in a much deeper position in the superior vena cava than the previous one. Subcutaneous platysma was approximated with 4-0 Monocryl. Skin with subdermal 4-0 Monocryl and [place] glue applied. The patient tolerated the procedure well. Job ID: [id number]
[2019-08-05 16:33] LABS: SARS-CoV-2 MS2 Positive; SARS-CoV-2 N Gene Negative; SARS-CoV-2 S Gene Negative; SARS-CoV-2 orf1ab Negative
--- NOTE | 2019-08-06 12:18 | EKG ---
Test Reason : PREOP Blood Pressure : / mmHG Vent. Rate : 068 BPM Atrial Rate : 068 BPM P-R Int : 132 ms QRS Dur : 090 ms QT Int : 432 ms P-R-T Axes : 075 -08 077 degrees QTc Int : 459 ms Normal sinus rhythm with sinus arrhythmia Nonspecific ST and T wave abnormality Abnormal ECG When compared with ECG of 27-JUL-2018 10:31, Premature atrial complexes are no longer Present Nonspecific T wave abnormality no longer evident in Inferior leads Confirmed by KAIN ARAUJO, SBranden ([id number]) on 08/06/2019 12:18:32 PM Referred By: NADIA Confirmed By:DR. Dyllan FINNEGAN MD
== END ==
LOC: SDC 12:15
PROVIDERS: ATTEND Specialist
PROC: 0JPT3XZ Removal of Tunneled Vascular Access Device from Trunk Subcutaneous Tissue and Fascia, Percutaneous Approach (ICD-10-PCS; principal; 2019-08-04)
PROC: 0JH63XZ Insertion of Tunneled Vascular Access Device into Chest Subcutaneous Tissue and Fascia, Percutaneous Approach (ICD-10-PCS; 2019-08-04)
PROC: 05PY03Z Removal of Infusion Device from Upper Vein, Open Approach (ICD-10-PCS; 2019-08-04)
PROC: 05HM33Z Insertion of Infusion Device into Right Internal Jugular Vein, Percutaneous Approach (ICD-10-PCS; 2019-08-04)
PROC: B513ZZA Fluoroscopy of Right Jugular Veins, Guidance (ICD-10-PCS; 2019-08-04)
DX: T82.41XA Breakdown (mechanical) of vascular dialysis catheter, initial encounter (principal); I12.0 Hypertensive chronic kidney disease with stage 5 chronic kidney disease or end stage renal disease; E11.22 Type 2 diabetes mellitus with diabetic chronic kidney disease; N18.6 End stage renal disease; E78.00 Pure hypercholesterolemia, unspecified; Z11.59 Encounter for screening for other viral diseases; Z01.812 Encounter for preprocedural laboratory examination; Z87.891 Personal history of nicotine dependence; Z79.84 Long term (current) use of oral hypoglycemic drugs; Z88.8 Allergy status to other drugs, medicaments and biological substances; Z99.2 Dependence on renal dialysis; Z95.5 Presence of coronary angioplasty implant and graft; Z90.49 Acquired absence of other specified parts of digestive tract
CPT/HCPCS: 36558; 36589; 71045; 71046; 76000; 80048; 85025; 93005; C1752; C1769; G0365; U0003; 36415; 87635; 93010; 93970; J0690; J1644; J2001; J2704; J3010; S0020

== ENCOUNTER 2019-09-06 22:22 | Inpatient (IN) | payer MEDICARE, MEDICAID ==
[2019-09-06 23:24] LABS: #Lymphocytes 0.7 thou/uL (1.20-3.40); #Monocytes 0.3 thou/uL (0.11-0.59); #Neutrophils 16.4 thou/uL (1.40-6.50); %Basophils 0.1 % (0.0-1.0); %Monocytes 1.9 % (0.0-10.0); Hemoglobin 9.4 g/dL (12.0-16.0); Mean Corpuscular HGB CONC 33.5 g/dL (32.0-36.0); Mean Corpuscular Hemoglobin 30.4 pg (27.0-31.0); Mean Platelet Volume 7.9 fL (7.4-10.4); Platelet Count 218 thou/uL (130-400); RBC Distribution Width 15.7 % (11.5-14.5); Red Blood Cell (RBC) Count 3.08 mill/uL (4.20-5.40); White Blood Cell (WBC) Count 17.5 thou/uL (4.8-10.8)
[2019-09-06 23:45] LABS: ALT (SGPT) 9 U/L (8-55); AST (SGOT) 17 U/L (5-34); Albumin 2.6 g/dL (3.4-4.8); Alkaline Phosphatase 171 U/L (40-110); Anion Gap 13 mmol/L (10-20); BUN (Urea Nitrogen) 30 mg/dL (9.8-20.1); Bilirubin, Total 0.6 mg/dL (0.2-1.2); Calc. Creatinine Clearance 0 mL/min (70-130); Calcium 8.2 mg/dL (7.8-10.44); Carbon Dioxide 28 mmol/L (23-31); Chloride 97 mmol/L (98-107); Estimated GFR-MDRD 17; Globulin 3.4 g/dL (2.4-3.5); Glucose 223 mg/dL (83-110); Potassium 3.8 mmol/L (3.5-5.1); Sodium 134 mmol/L (136-145)
[2019-09-07] MEDS ORDERED: Vancomycin HCl 750 MG in Sodium Chloride 0.9% 250 ML 250 ML IVPB SCH ×2 (00:30→06:00)
--- NOTE | 2019-09-07 00:31 | PDOC.HHP ---
Hospitalist HPI - History of Present Illness Left sided weakness/hypotension History of Present Illness: Patient with PMH of HTN, HLD, CAD, ESRD on HD presents for evaluation of left sided weakness noted at time of awakening. During my assessment patient is awake and alert. When asked to to reason why she is in the hospital she replies "because I had small stroke." She appears somewhat lethargic and offers very limited history. From my conversation with ED provider she did undergo CT head and CT angiongram that were negative for acute pathology. On exam she has paralysis of RUE but preserved motor function on LLE and right upper/lower. To me she denies any shortness of breath but opposite was referred to ED provider. She was noted no have leukocytosis of 17, hypotensive in the 90s systolic, with chest x-ray showing perihilar opacities hence sepsis alert was initiated. Patient did receive some IVFs however later stopped due to pulmonary edema and history of ESRD on HD. Currently she is on broad spectrum antibotics and vasopressors due to hypotension. Rest of ED evaluation reveals leukocytosis, evidence of ESRD, no major electrolyte abnormality, elevated troponin of 0.7 with no significant EKG changes. Hospitalist ROS - Review of Systems Constitutional: reports: weakness, malaise. denies: fever, chills Eyes: reports: pain Respiratory: denies: cough, shortness of breath, pleuritic pain, sputum, wheezing Cardiovascular: denies: chest pain, palpitations, orthopnea Gastrointestinal: denies: nausea, vomiting, abdominal pain Genitourinary: denies: dysuria Neurological: reports: weakness - Exam General - other findings: Very somnolent ENT: normocephalic atraumatic Neck: supple, symmetric, no JVD Heart: RRR, no murmur, no gallops Respiratory - other findings: Decreased bs but no wheezing or rales Gastrointestinal: soft, non-tender Gastrointestinal - other findings: Slightly distended abdomen Extremities: no cyanosis Skin: normal turgor Neurological - other findings: Right upper extremity weakness Psychiatric: somnolent Hospitalist Results - Labs Result Diagrams: 09/07/19 02:12 09/07/19 02:12 Lab results: WBC 17.5 thou/uL (4.8-10.8) H 09/06/19 23:16 Hgb 9.4 g/dL (12.0-16.0) L 09/06/19 23:16 Hct 28.0 % (36.0-47.0) L 09/06/19 23:16 MCV 91.0 fL (78.0-98.0) 09/06/19 23:16 Plt Count 218 thou/uL (130-400) 09/06/19 23:16 Neutrophils % 94.0 % (42.0-75.0) H 09/06/19 23:16 Sodium 134 mmol/L (136-145) L 09/06/19 23:16 Potassium 3.8 mmol/L (3.5-5.1) 09/06/19 23:16 Chloride 97 mmol/L (98-107) L 09/06/19 23:16 Carbon Dioxide 28 mmol/L (23-31) 09/06/19 23:16 BUN 30 mg/dL (9.8-20.1) H 09/06/19 23:16 Creatinine 3.24 mg/dL (0.6-1.1) H 09/06/19 23:16 Glucose 223 mg/dL (83-110) H 09/06/19 23:16 Lactic Acid 1.1 mmol/L (0.5-2.2) 09/06/19 23:16 Calcium 8.2 mg/dL (7.8-10.44) 09/06/19 23:16 Total Bilirubin 0.6 mg/dL (0.2-1.2) 09/06/19 23:16 AST 17 U/L (5-34) 09/06/19 23:16 ALT 9 U/L (8-55) 09/06/19 23:16 Alkaline Phosphatase 171 U/L (40-110) H 09/06/19 23:16 Troponin I 0.868 ng/mL (< 0.028) H* 09/06/19 23:16 Serum Total Protein 6.0 g/dL (6.0-8.3) 09/06/19 23:16 Albumin 2.6 g/dL (3.4-4.8) L 09/06/19 23:16 - Radiology Interpretation Chest x-ray Status: image reviewed by me (Possible perihilar infiltrates and pulmonary congestion, negative CT head and CT angio for obvious acute pathology but evidence of remote lacunar CVAs) Hospitalist H&P A/P - Plan Plan: Problem List 1. Suspected acute ischemic CVA 2. Hypotension 3. ESRD on HD 4. Elevated troponin 5. History of HTN Assessment and Plan 1. Suspected acute ischemic CVA - admit for further treatment - suspecting ischemic CVA based on exam - keep NPO for now until swallow eval performed - stroke pathways with neuro check per protocol - ASA per rectum while NPO - statin when able to take PO - check MRI and carotid doppler despite negative CTA - lipid profile and A1c - neurology consulted 2. Hypotension - unclear if due to infectious etiology - she does have leukocytosis and possible lung infiltrates - repeat chest x-ray in 24 hrs - started on vasopressors for hemodynamic support - continue with IV Vanc and Zosyn - follow up cultures - try to obtain urine - ID service has been consulted 3. ESRD on HD - mild fluid overload per chest x-ray - nephrology consulted for HD and fluid management 4. Elevated troponin - suspecting demand ischemia and ESRD as etiology - continue with ASA per rectum for tx of CVA - monitor clinical progression closely 5. History of HTN - currently hypotensive requiring Levophed - hold antihypertensives - monitor hemodynamics closely DVT PPX: HepSQ. FULL CODE
[2019-09-07] MEDS ORDERED: Norepinephrine 8 MG in Dextrose 5% in Water 242 ML IVPB PRN (01:43)
[2019-09-07] MEDS ORDERED: Norepinephrine 8 MG/0.9% NS 250 ML ONE ×2 (01:45→21:31)
[2019-09-07 02:27] LABS: Hemoglobin 9.3 g/dL (12.0-16.0); Mean Corpuscular HGB CONC 32.3 g/dL (32.0-36.0); Mean Corpuscular Hemoglobin 29.5 pg (27.0-31.0); Mean Corpuscular Volume 91.3 fL (78.0-98.0); Mean Platelet Volume 8.6 fL (7.4-10.4); Platelet Count 226 thou/uL (130-400); RBC Distribution Width 15.8 % (11.5-14.5); Red Blood Cell (RBC) Count 3.15 mill/uL (4.20-5.40); White Blood Cell (WBC) Count 18.5 thou/uL (4.8-10.8)
[2019-09-07 02:38] LABS: Critical Call Chem Troponin I RESULT DECREASING; Troponin I 0.774 ng/mL (< 0.028)
[2019-09-07 02:51] LABS: Band 12 % (5-11); Hypochromia SLIGHT = 6-15 cells (100X) (0-5/hpf); Lymphocytes 3 % (21-51); MDiff Complete? YES; Monocytes 9 % (0-10); Neutrophil 76 % (42-75); Platelet Morphology Comment Appears Adequate
[2019-09-07 02:52] LABS: ALT (SGPT) 7 U/L (8-55); AST (SGOT) 17 U/L (5-34); Albumin 2.5 g/dL (3.4-4.8); Alkaline Phosphatase 169 U/L (40-110); Anion Gap 12 mmol/L (10-20); BUN (Urea Nitrogen) 32 mg/dL (9.8-20.1); Bilirubin, Total 0.7 mg/dL (0.2-1.2); Calc. Creatinine Clearance 0 mL/min (70-130); Calcium 8.2 mg/dL (7.8-10.44); Carbon Dioxide 28 mmol/L (23-31); Cardiac Risk 13.5 (Less than 4.5); Chloride 99 mmol/L (98-107); Cholesterol 135 mg/dl (< 200 Desired); Estimated GFR-MDRD 16; Globulin 3.3 g/dL (2.4-3.5); Glucose 201 mg/dL (83-110); HDL Cholesterol 10 mg/dL (>60 Neg Risk); LDL Cholesterol, Calculated 75 mg/dL; Potassium 3.9 mmol/L (3.5-5.1); Protein, Total 5.8 g/dL (6.0-8.3); Sodium 135 mmol/L (136-145); Triglycerides 248 mg/dL (Less than 150)
[2019-09-07] MEDS: Piperacillin/Tazobactam 2.25 GM in Sodium Chloride 0.9% 100 ML IVPB SCH ×4 (04:26→19:44)
[2019-09-07 05:53] LABS: Critical Call Chem Troponin I RESULT DECREASING; Troponin I 0.667 ng/mL (< 0.028)
[2019-09-07] MEDS ORDERED: Vancomycin HCl 250 MG in Sodium Chloride 0.9% 100 ML IVPB SCH (06:00)
[2019-09-07] MEDS ORDERED: Vancomycin 1 GM in Premix Bag 1 BAG IVPB SCH (06:00)
[2019-09-07] MEDS ORDERED: Vancomycin Sliding Scale 1 EACH FS ONE (06:00)
[2019-09-07] MEDS ORDERED: Vancomycin HCl 500 MG in Sodium Chloride 0.9% 100 ML IVPB SCH (06:00)
[2019-09-07] MEDS ORDERED: HOLD VANCOMYCIN FOR LEVEL >20 FS SCH (06:00)
[2019-09-07 07:12] LABS: Vancomycin, Trough 12.9 ug/mL
[2019-09-07] MEDS ORDERED: Vancomycin HCl 1 GM in Sodium Chloride 0.9% 250 ML 250 ML IVPB SCH (09:00)
[2019-09-07] MEDS: Heparin 5,000 UNITS/ML VIAL SC SCH ×2 (09:03→19:43)
[2019-09-07] MEDS: Aspirin 300 MG Suppository PR SCH (09:03)
--- NOTE | 2019-09-07 13:09 | CON ---
NEUROLOGY CONSULTATION DATE OF CONSULTATION: 09/07/2019 REASON FOR CONSULTATION: Left-sided weakness, hypotension. HISTORY OF PRESENT ILLNESS: Ms. Reanna Ramirez is an 83-year-old female with history significant for hypertension, hyperlipidemia, coronary artery disease, end-stage renal disease, on hemodialysis, presented with acute onset of left-sided weakness when she woke up in the morning. She is a poor historian, unable to provide the exact history. According to her, she felt weak in the right upper and lower extremities. In the emergency room, head CT was done, which was negative for acute intracranial pathology. CT angiogram did not show significant stenosis. The patient denies nausea, vomiting, headache, vertigo, dizziness, chest pain, abdominal pain associated with weakness. She became hypotensive, so she was started on broad-spectrum antibiotics and vasopressors. The labs showed leukocytosis and end-stage renal disease. EKG was reviewed and it did not show any significant EKG changes. - Review of Systems Constitutional: reports: weakness, malaise. denies: fever, chills Eyes: reports: pain Respiratory: denies: cough, shortness of breath, pleuritic pain, sputum, wheezing Cardiovascular: denies: chest pain, palpitations, orthopnea Gastrointestinal: denies: nausea, vomiting, abdominal pain Genitourinary: denies: dysuria Neurological: reports: weakness ALLERGIES: Metformin, diphenhydramine PAST MEDICAL HISTORY: Hypertension, hyperlipidemia, coronary artery disease, end-stage renal disease, on hemodialysis. PAST SURGICAL HISTORY: Nonsignificant. FAMILY HISTORY: No significant family history. SOCIAL HISTORY: The patient denies smoking, alcohol, or illegal drug use. - Exam General - other findings: Very somnolent ENT: normocephalic atraumatic Neck: supple, symmetric, no JVD Heart: RRR, no murmur, no gallops Respiratory - other findings: Decreased bs but no wheezing or rales Gastrointestinal: soft, non-tender Gastrointestinal - other findings: Slightly distended abdomen Extremities: no cyanosis Skin: normal turgor Neurological -Mental status; the patient is alert and oriented to person, place , and time. Speech is clear. Recent and remote memory intact. Fund of knowledge is appropriate. Cranial nerves 2 through 12 intact except 7th, mild right facial droop. Motor; muscle tone is decreased, bulk is normal. Strength; 2/5 in the right upper extremity, 3/5 in the right lower extremity, 5/5 in the left upper and lower extremities. Reflexes; symmetric bilaterally. Cerebellar; unable to perform on the right secondary to weakness, intact on the left. Finger-nose testing intact on the left. Gait deferred due to patient's safety reasons. Babinski equivocal bilaterally. 09/07/19 02:12 Lab results: WBC 17.5 thou/uL (4.8-10.8) H 09/06/19 23:16 Hgb 9.4 g/dL (12.0-16.0) L 09/06/19 23:16 Hct 28.0 % (36.0-47.0) L 09/06/19 23:16 MCV 91.0 fL (78.0-98.0) 09/06/19 23:16 Plt Count 218 thou/uL (130-400) 09/06/19 23:16 Neutrophils % 94.0 % (42.0-75.0) H 09/06/19 23:16 Sodium 134 mmol/L (136-145) L 09/06/19 23:16 Potassium 3.8 mmol/L (3.5-5.1) 09/06/19 23:16 Chloride 97 mmol/L (98-107) L 09/06/19 23:16 Carbon Dioxide 28 mmol/L (23-31) 09/06/19 23:16 BUN 30 mg/dL (9.8-20.1) H 09/06/19 23:16 Creatinine 3.24 mg/dL (0.6-1.1) H 09/06/19 23:16 Glucose 223 mg/dL (83-110) H 09/06/19 23:16 Lactic Acid 1.1 mmol/L (0.5-2.2) 09/06/19 23:16 Calcium 8.2 mg/dL (7.8-10.44) 09/06/19 23:16 Total Bilirubin 0.6 mg/dL (0.2-1.2) 09/06/19 23:16 AST 17 U/L (5-34) 09/06/19 23:16 ALT 9 U/L (8-55) 09/06/19 23:16 Alkaline Phosphatase 171 U/L (40-110) H 06/17/20 23:16 Troponin I 0.868 ng/mL (< 0.028) H* 09/06/19 23:16 Serum Total Protein 6.0 g/dL (6.0-8.3) 09/06/19 23:16 Albumin 2.6 g/dL (3.4-4.8) L 09/06/19 23:16 - Radiology Interpretation Chest x-ray Status: image reviewed by me (Possible perihilar infiltrates and pulmonary congestion, negative CT head and CT angio for obvious acute pathology but evidence of remote lacunar CVAs) LABORATORY AND DIAGNOSTIC DATA: Data reviewed. I reviewed the labs, which were significant for hyponatremia 135, hyperglycemia, glucose 201. Chronic anemia with hemoglobin of 9.3 and hematocrit of 28.7. End-stage renal disease with BUN of 32 and creatinine 3.37. I also reviewed the MRI of the brain, which did not reveal any acute intracranial pathology. Also, the CT angio did not reveal any acute pathology, but evidence of remote lacunar infarct. ASSESSMENT AND PLAN: Ms. Reanna Ramirez is admitted for acute ischemic cerebrovascular accident. She does have risk factors for stroke including hypertension, hyperlipidemia, and end-stage renal disease. Recommend MRI to rule out acute intracranial pathology and carotid Dopplers to rule out significant stenosis. Check lipid panel, hemoglobin A1c, and TSH. Aspirin per rectum since she is n.p.o. Formal speech evaluation. Formal swallow eval. Continue home medications. Consider high-intensity statin for secondary stroke prevention. PT/OT/speech. Neuro checks every 4 hours. Telemetry. End-stage renal disease, Nephrology on board. Hypotension, on Levophed drip. Permissive control of blood pressure at this time. Strict control of blood glucose. Continue medical management per Primary Team.We will continue to follow. Plan discussed with the primary attending Dr. Villarreal Thank you for the consult. Job ID: [id number] [facility] SYSTEM[facility]
--- NOTE | 2019-09-07 15:29 | MRI ---
Exam: Brain MRI without contrast HISTORY: CVA. Stroke. Left-sided weakness. COMPARISON: None FINDINGS: Calvarial marrow signal intensity: Appropriate T1 signal Gradient echo sequence: No hemorrhage Brain parenchyma: No mass, mass effect or midline shift. Brain volume, age-appropriate. Cortical birmingham-white matter differentiation: [place]-white matter differentiation involving the right fro ntal lobe and left occipital lobe. There is associated restricted diffusion. Additional multifocal areas of restricted diffusion are noted in the subcortical and deep white matter as well as the left cerebellar hemisphere, right cerebellar hemisphere and midbrain. Multifocal nature favors a follicle canal. Restricted diffusion: Multifocal restricted diffusion as detailed above. White matter signal intensities:T2 and FLAIR white matter hyperintensities with corresponding restric vincent diffusion as described above. Additional minimal chronic small vessel ischemic changes of the white matter. Sinuses: Adequate aeration of the paranasal sinuses and mastoid air cells. IMPRESSION: 1. Multifocal acute infarcts as described above. Distribution favors an embolic phenomenon. Consider cardiac ECHO
--- NOTE | 2019-09-07 19:31 | CON ---
DATE OF CONSULTATION: REASON FOR CONSULTATION: Stage 6 chronic kidney disease for maintenance hemodialysis. HISTORY OF PRESENT ILLNESS: An 83-year-old female who presented to the hospital early this morning for left-sided weakness and hypertension. The patient denies any nausea, vomiting, or chest pain. The patient has been started on pressors, and denies any complaint. PAST MEDICAL HISTORY: Significant for hypertension, anemia, end-stage kidney disease, history of CVA, history of diabetes mellitus, history of stage 6 chronic kidney disease, pulmonary hypertension, GERD, neoplasm of the colon, colon resection. SOCIAL HISTORY: No alcohol or drug use. FAMILY HISTORY: Negative for ESRD. ALLERGIES: REVIEWED. HOME MEDICATIONS: Home medication list reviewed. Hospital medications reviewed. REVIEW OF SYSTEMS: Fifteen-point review of system was performed, was negative except for positives noted above. HEENT: Eyes intact, no diplopia. Ears: No hearing loss or earache. Nose: No discharge or bleeding. CHEST: No cough or phlegm. ABDOMEN: No nausea or vomiting. GENITOURINARY: No hematuria. No Casey catheter. MUSCULOSKELETAL: No low back pain. No joint swelling or pain. NEUROLOGICAL: No syncope. No seizures. SKIN: No complaints of rash or itching. PSYCHIATRIC: No depression. CONSTITUTIONAL: No weight loss or loss of appetite. PHYSICAL EXAMINATION: GENERAL: The patient is awake and alert. VITAL SIGNS: Afebrile, pulse 61, breathing at 16, blood pressure 116/55. HEENT: Head normocephalic and atraumatic. Eyes intact, no ulcers. Nose intact, no ulcers. Ears intact, no ulcers. NECK: Supple. No JVD. CHEST: Symmetrical and clear. CARDIOVASCULAR: Shows S1 and S2, no rub, no murmur. GASTROINTESTINAL: Abdomen is soft, bowel sounds positive. EXTREMITIES: Show no edema or ulcers. SKIN: Shows no rash or petechiae. MUSCULOSKELETAL: Shows no joint swelling or stiffness. GENITOURINARY: Shows no Casey or CVA tenderness. NEUROLOGIC: Motor intact. Cranial nerves intact. LABORATORY DATA: Reviewed. ASSESSMENT: 1. Stage 6 chronic kidney disease, plan dialysis tomorrow. 2. Hypertension, stable. 3. Anemia, stable. 4. Due to low blood pressure, we will avoid dialysis today. Job ID: [id number]
[2019-09-07] MEDS: Atorvastatin Calcium 40 MG TAB PO SCH (19:43)
--- NOTE | 2019-09-07 19:56 | PDOC.HOSPP ---
- Subjective Encounter Date: 09/07/19 Encounter Time: 10:00 Subjective: Pt seen for followup re: ischemic CVA. States she feels better. - Objective Vital Signs & Weight: Vital Signs (12 hours) Temp Pulse Pulse BP BP Pulse Ox Pulse Ox 09/07/19 12:15 65 62 117/64 121/74 98 09/07/19 12:00 97.5 F L 99 09/07/19 09:26 64 69 104/55 L 115/56 L 98 09/07/19 08:00 97.5 F L 97 Pulse Ox 09/07/19 12:15 98 09/07/19 12:00 09/07/19 09:26 94 L 09/07/19 08:00 Weight Admit Weight 98 lb Weight 98 lb 1.691 oz Most Recent Monitor Data Heart Rate from ECG 66 NIBP 123/60 NIBP BP-Mean 81 Respiration from ECG 15 SpO2 100 I&O: 09/06/19 09/07/19 09/08/19 06:59 06:59 06:59 Intake Total 100 473 Output Total 0 0 Balance 100 473 Result Diagrams: 09/07/19 02:12 09/07/19 02:12 Additional Labs: Labs and MARs reviewed by me EKG Reviewed by me: Yes (Tele: NSR) Hospitalist ROS - Review of Systems Constitutional: denies: fever, chills, sweats, weakness, malaise Respiratory: denies: cough, shortness of breath, SOB with excertion, pleuritic pain, wheezing Cardiovascular: denies: chest pain, palpitations, orthopnea, paroxysmal noc. dyspnea, edema, light headedness Gastrointestinal: denies: nausea, vomiting, abdominal pain, diarrhea, constipation, melena, hematochezia Genitourinary: denies: dysuria, frequency, incontinence, hematuria, retention Skin: denies: rash, lesions, abril, bruising - Medication Medications: Active Medications Generic Name Dose Route Start Last Admin Trade Name Freq PRN Reason Stop Dose Admin Aspirin 300 mg 09/07/19 09:00 09/07/19 09:03 Aspirin NE 300 mg DAILY FRANKLIN Administration Heparin Sodium (Porcine) 5,000 units 09/07/19 09:00 09/07/19 09:03 Heparin SC 5,000 units Q12HR FRANKLIN Administration Piperacillin Sod/Tazobactam 100 mls @ 200 mls/hr 09/07/19 03:00 09/07/19 16: 16 Sod 2.25 gm/ Sodium Chloride IVPB 100 mls 0300,0900,1500,2100 FRANKLIN Administration - Exam General Appearance: awake alert Eye: anicteric sclera ENT: normocephalic atraumatic, no oropharyngeal lesions Neck: supple, symmetric, no thyromegaly, no lymphadenopathy Heart: RRR, no gallops, no rubs, normal peripheral pulses Respiratory: CTAB, no wheezes, no rales, no ronchi Gastrointestinal: soft, non-tender, non-distended, normal bowel sounds Neurological: normal sensation to touch Neurological - other findings: R sided weakness Psychiatric: normal affect, normal behavior, oriented to person, oriented to place Hosp A/P - Plan Assessment and Plan 1. Acute ischemic CVA - rectal aspirin - ASA per rectum while NPO - statin when able to take oral medications - check MRI -appreciate neurology service input 2. Hypotension - continue vasopressors for hemodynamic support - continue IV Vanc and Zosyn, follow cultures - follow up cultures 3. ESRD on HD - dialysis per nephrology service 4. Elevated troponin - Pt denies chest pain, likely troponin elevation due to demand ischemia DVT PPX: HepSQ. FULL CODE
[2019-09-07] MEDS: Norepinephrine 8 MG/0.9% NS 250 ML IVPB SCH (21:36)
--- NOTE | 2019-09-08 01:44 | CON ---
DATE OF CONSULTATION: 09/07/2019 REASON FOR CONSULTATION: Sepsis. HISTORY OF PRESENT ILLNESS: An 83-year-old patient, who has a history of end- stage renal disease, type 2 diabetes, and colon cancer in remission after treatment, who developed left-sided weakness and therefore was brought to the hospital. She was found to be hypotensive and she was given IV fluids and broad-spectrum antimicrobial coverage and transferred to our emergency room. On arrival, her left weakness had improved somewhat. BP was 93/47, pulse 69, temperature 97.5, and O2 saturation 91 on room air. The exam was remarkable for patient been awake and alert. Moving all extremities. The lungs were clear. The heart examination was normal. Abdomen was soft and nontender. Other findings included white cell count 17,000, hemoglobin 9.4, and platelets 218 with 94% neutrophils. Sodium 134 and creatinine 3.24. Liver profile with normal transaminases and bilirubin. Alkaline phosphatase was 171. Troponin was 0.8. Albumin 2.6. The patient has had 2 sets of blood culture submitted and those are pending. The patient had a brain MRI today, which demonstrated multifocal acute infarcts, those are located in the frontal lobe, occipital lobe, subcortical and deep white matter and left cerebellar hemisphere. Sinuses are well aerated. The patient is currently on Zosyn and vancomycin and she is on Levophed as well. Recent procedures include placement of a new right- sided tunneled IJ catheter and establishment of an AV fistula in the left upper extremity by Dr. Stone, respectively on 08/03 and 08/08. Ms. Ramirez is in the ICU at the moment because of the requirement for vasopressors. She is awake, appears a little bit confused. She could not tell me the date or where she was located. She was able to establish eye contact. She denied any headaches. Pretty much everything I asked her she denied. I am not sure about the reliability of this review of systems. PAST MEDICAL HISTORY: Includes hypertension, coronary artery disease, end-stage renal disease on hemodialysis through a tunneled catheter in the right IJ position, new onset of left-sided weakness with multiple areas of acute CVA demonstrated on MRI. ALLERGIES: BENADRYL AND METFORMIN. PAST SURGICAL HISTORY: Colon resection in 2008 with cancer in remission, C- spine surgery, and oophorectomy. SOCIAL HISTORY: Former smoker. CURRENT MEDICATIONS: 1. Lipitor. 2. Norepinephrine. 3. Zosyn. 4. Vancomycin. 5. Aspirin. PHYSICAL EXAMINATION: VITAL SIGNS: She has been afebrile here in the hospital. BP 120/60, pulse 66, respirations 15, and O2 saturation 100. SKIN: Shows the right tunneled IJ catheter for dialysis. The left AV fistula site not yet mature. She is anuric. She has no lymphadenopathy. HEENT: Some element of wasting syndrome with temporal wasting. The ocular movements are conjugate. She has absence of eyelids. Oral cavity with normal oral mucosa except for tongue papillae atrophy. NECK: No jugular vein distention. LUNGS: Bilateral lung sounds, which are symmetric. Faint basilar crackles. HEART: S1 and S2. Diminished heart sounds. No S3. Regular rate. No murmurs. ABDOMEN: Soft, not tender. No ascites. No bladder distention. EXTREMITIES: Pulses are diminished in dorsalis pedis, but her extremities are warm. She is able to move them except for the left side, which is paretic compared with the right. Plantar responses are indifferent on the left and flexor on the right. No clonus noted. She is awake, knows her name, but she could not tell me where she was or the date. She could not answer any questions with any reliability and the brain MRI noted. The chest x-ray from 09/05 with perihilar interstitial opacities. She does not have any echocardiogram on file right now that we can find. ASSESSMENT: End-stage renal disease, hypertension, acute cerebrovascular accident in multiple areas of distribution suggesting an embolic phenomenon, hypotension , and leukocytosis. DISCUSSION: The differential diagnosis includes some form of cardiomyopathy, decreased cardiac output with hypotension versus an infectious process with bacteremia, possibility of endocarditis is considered in view of the embolic phenomena and the MRI noticeable in the multiple brain areas. These; however, could also represent bland emboli as well from atherosclerosis originating from the aortic area. We will check an echocardiogram if not ordered yet. Monitor blood cultures. The lung infiltrates are probably related to cardiogenic edema or noncardiogenic edema. An atypical opportunistic infectious process appears to be less likely. Intraabdominal inflammatory process is not apparent at this time. Job ID: [id number] [facility]
[2019-09-08] MEDS: Piperacillin/Tazobactam 2.25 GM in Sodium Chloride 0.9% 100 ML IVPB SCH ×4 (02:24→21:30)
--- NOTE | 2019-09-08 05:34 | CON ---
DATE OF CONSULTATION: 09/07/2019 HISTORY OF PRESENT ILLNESS: Ms. Ramirez is an 83-year-old female, who is in the Critical Care Unit. She is a dialysis patient. Her presenting complaint was left-sided weakness. This is stable by her report. PAST MEDICAL HISTORY: Remarkable for, 1. End-stage renal disease, on dialysis. 2. History of vascular access procedures. 3. Diabetes. 4. History of colon cancer, resected in 2008. 5. History of back surgery in the past. 6. Hypertension. 7. Lipid disorder. 8. History of coronary stenting two years ago. FAMILY HISTORY: Negative for lung disease in early age. ALLERGIES: SHE REPORTS METFORMIN AND BENADRYL INTOLERANCE. SOCIAL HISTORY: She is a nondrinker. REVIEW OF SYSTEMS: Otherwise negative. PHYSICAL EXAMINATION: VITAL SIGNS: Blood pressure is in the 120s right now. She is on a low-dose Levophed to keep her pressure up. She is scheduled for dialysis today. Reportedly, heart rates in the 60s and respiratory rates in the teens. HEAD AND NECK: Unremarkable. LUNGS: Clear. HEART: Regular rhythm. S1 and S2 are normal. ABDOMEN: Soft and nontender. EXTREMITIES: Without clubbing, cyanosis, or edema. NEUROLOGIC: Remarkable for left-sided weakness. IMAGING DATA: Head CT done last night showed no evidence of a bleed or thrombus. IMPRESSION: 1. Cerebrovascular accident. 2. End-stage renal disease. 3. Diabetes. 4. Hypertension. PLAN: Supportive care. I think it is reasonable not to treat elevated blood pressures aggressively, but not sure that trying to elevate blood pressure to the 150-160 range is reasonable. There are numerous potential side effects from moderate to high dose pressors in this setting, i.e. bowel infarctions, myocardial infarction, etc. We would just continue with supportive care and avoid over treating any elevated blood pressure. TIME SPENT: This is a 70-minute consult, 50% of the time was spent on the unit coordinating care. Job ID: [id number] [facility]
--- NOTE | 2019-09-08 07:48 | RAD ---
XR Chest 1 View History: Pneumonia Comparison: Radiograph 2 days prior Findings: Background lung hyperinflation. Trace effusions. Improved lung aeration in the lung bases. Dialysis catheter tip inferior SVC. Scarring throughout the lungs. Impression: Improved volume overload. No evidence for pneumonia.
[2019-09-08 08:52] LABS: Actual Bicarbonate (HCO3a) 19.5 mEq/L (22-28); Base Excess (BEa) -11.7 mEq/L (-2.0 to +3.0); Calcium, Ionized (arterial) 1.18 mmol/L (1.12-1.30); Carboxyhemoglobin (COHb) 0.6 gm% (0.0-3.0); Hemoglobin (Hb) 9.8 g/dL (12.0-16.0); O2 Tension (PaO2), arterial 64.3 mmHg (> 60.0); Potassium - ABG Lab 4.67 mmol/L (3.70-5.30)
[2019-09-08] MEDS ORDERED: Propofol 1,000 MG/100 ML VIAL IV ONE (09:06)
[2019-09-08 09:17] LABS: Vancomycin, Random 6.3 ug/mL (See Comment)
[2019-09-08 09:23] LABS: CO2 Tension 78.1 mmHg (35.0-45.0); pH, Arterial 7.02 (7.35-7.45)
[2019-09-08 09:24] LABS: ALV-art Gradient 194.575 (0-20); Puncture Site RRAD
--- NOTE | 2019-09-08 09:30 | CT ---
CT BRAIN WITHOUT CONTRAST: Date: 09/08/2019 HISTORY: Worsening stroke symptoms. Agonal breathing and decreased consciousness. COMPARISON: 09/06/2019. CORRELATION: MRI of 09/07/2019. FINDINGS: The multifocal lacunar infarctions noted in the cerebral and cerebellar hemispheres on yesterday's MR I are not definitely seen on the current study. No hemorrhage, transcortical infarct, midline shift, or abnormal extra-axial fluid collections are seen. The ventricular size is stable and the basilar ci sterns are patent. The bony calvarium is intact. IMPRESSION: No evidence of hemorrhagic transformation of the multifocal acute infarcts noted on the previous day' s MRI. Discussed over the telephone with Dr. Rivers at 0911 hours. CODE CR.
[2019-09-08 09:36] LABS: Hemoglobin 9.3 g/dL (12.0-16.0)
[2019-09-08 09:46] LABS: Anion Gap 19 mmol/L (10-20); BUN (Urea Nitrogen) 30 mg/dL (9.8-20.1); Calc. Creatinine Clearance 10 mL/min (70-130); Calcium 8.1 mg/dL (7.8-10.44); Carbon Dioxide 22 mmol/L (23-31); Chloride 102 mmol/L (98-107); Estimated GFR-MDRD 17; Glucose 194 mg/dL (83-110); Potassium 4.5 mmol/L (3.5-5.1); Sodium 138 mmol/L (136-145)
--- NOTE | 2019-09-08 09:53 | PRG ---
DATE OF SERVICE: 09/08/2019 SUBJECTIVE: This morning, the patient had altered mental status. OBJECTIVE: General: The patient is awake and alert. VITAL SIGNS: On examination, vital signs; afebrile, pulse 69, breathing at 16, blood pressure 144/68. HEENT: Head normocephalic and atraumatic. Eyes intact, no ulcers. Nose intact, no ulcers. Ears intact, no ulcers. Neck: Supple. No JVD. Chest: Symmetrical and clear. Cardiovascular: Shows S1 and S2, no rub, no murmur. Gastrointestinal: Abdomen is soft, bowel sounds positive. Extremities: Show no edema or ulcers. Skin: Shows no rash or petechiae. Musculoskeletal: Shows no joint swelling or stiffness. Genitourinary: Shows no Casey or CVA tenderness. Neurologic: The patient is confused. ASSESSMENT AND PLAN: 1. Stage 6 chronic kidney disease, plan dialysis. 2. Hypertension, stable. 3. Anemia, stable. 4. Medication based on GFR appropriate. Overall prognosis is poor. Job ID: [id number]
[2019-09-08] MEDS ORDERED: Heparin 10,000 UNITS/ 10 ML VIAL ONE (10:03)
[2019-09-08] MEDS: Aspirin 300 MG Suppository PR SCH (10:13)
[2019-09-08] MEDS: Heparin 5,000 UNITS/ML VIAL SC SCH ×2 (10:14→20:01)
--- NOTE | 2019-09-08 11:34 | PDOC.HOSPP ---
- Subjective Encounter Date: 09/08/19 Subjective: NEUROLOGY PROGRESS NOTE Patient somnolent with worsening of left sided deficits after an episode of hypotension. Stat NCHT did not show hemorrhagic conversion. Intubated to protect airway. - Objective Vital Signs & Weight: Vital Signs (12 hours) Temp Pulse 09/08/19 09:31 92 09/08/19 04:00 97.7 F 09/08/19 00:00 97.4 F L Weight Admit Weight 98 lb Weight 101 lb 6.602 oz Most Recent Monitor Data Heart Rate from ECG 70 NIBP 144/68 NIBP BP-Mean 93 Respiration from ECG 21 SpO2 96 I&O: 09/07/19 09/08/19 09/09/19 06:59 06:59 06:59 Intake Total 100 1388 Output Total 0 0 Balance 100 1388 Result Diagrams: 09/08/19 08:46 09/08/19 08:46 Additional Labs: Accuchecks 09/08/19 08:52 POC Glucose 224 H Radiology Reviewed by me: Yes EKG Reviewed by me: Yes Hospitalist ROS - Review of Systems ROS unobtainable: due to mental status (intubated and sedated) - Medication Medications: Active Medications Generic Name Dose Route Start Last Admin Trade Name Freq PRN Reason Stop Dose Admin Aspirin 300 mg 09/07/19 09:00 09/08/19 10:13 Aspirin AK 300 mg DAILY FRANKLIN Administration Atorvastatin Calcium 40 mg 09/07/19 21:00 09/07/19 19:43 Lipitor PO 40 mg HS FRANKLIN Administration Heparin Sodium (Porcine) 5,000 units 09/07/19 09:00 09/08/19 10:14 Heparin SC Not Given Q12HR FRANKLIN Piperacillin Sod/Tazobactam 100 mls @ 200 mls/hr 09/07/19 03:00 09/08/19 10: 14 Sod 2.25 gm/ Sodium Chloride IVPB Not Given 0300,0900,1500,2100 FRANKLIN Norepinephrine Bitartrate 250 mls @ 0 mls/hr 09/07/19 21:35 09/07/19 21:36 Levophed IVPB 250 mls INF FRANKLIN Administration Protocol Titrate - Exam General Appearance: ill appearing Eye: PERRL ENT: normocephalic atraumatic Neck: supple Heart: RRR Respiratory: CTAB Gastrointestinal: no bruit Extremities: no cyanosis Skin: no lesions Neurological: facial droop, hemiplegia Neurological - other findings: left hemiplegia Psychiatric: somnolent (intubated and sedated), lethargic Hosp A/P (1) CVA (cerebral vascular accident) Code(s): I63.9 - CEREBRAL INFARCTION, UNSPECIFIED Status: Acute (2) S/P cervical discectomy Code(s): Z98.890 - OTHER SPECIFIED POSTPROCEDURAL STATES Status: Acute (3) CKD (chronic kidney disease), stage IV Code(s): N18.4 - CHRONIC KIDNEY DISEASE, STAGE 4 (SEVERE) Status: Chronic (4) Diabetes type 2, controlled Code(s): E11.9 - TYPE 2 DIABETES MELLITUS WITHOUT COMPLICATIONS Status: Chronic (5) Dyslipidemia Code(s): E78.5 - HYPERLIPIDEMIA, UNSPECIFIED Status: Chronic (6) Hypertension Code(s): I10 - ESSENTIAL (PRIMARY) HYPERTENSION Status: Chronic - Plan 83 year old with acute CVA with worsening left sided deficits due to hypotension. Repeat HCT today due to worsening deficits did not show any hemorrhagic conversion. Continue permissive BP control. Strict control of BG. MRI brain reviewed and showed multifocal inarcts likely cardioembolic. 2 D ECHO asmost likely cardioembolic source based on MRI Brain findings. Continue aspirin per rectal for secondary stroke prevention. Telemetry DVT prophylaxis. Neurochecks every 2 hours. Continue medical management per primary team. Plan discussed with the nursing staff f nephrology attending.
[2019-09-08 12:03] LABS: HBSAg Index 0.17 S/CO (0-0.99); Hep B Surf Ag Non-Reactive S/CO (NonReactive)
[2019-09-08 12:03] LABS: Actual Bicarbonate (HCO3a) 17.5 mEq/L (22-28); Base Excess (BEa) -5.4 mEq/L (-2.0 to +3.0); Calcium, Ionized (arterial) 1.07 mmol/L (1.12-1.30); Carboxyhemoglobin (COHb) 0.9 gm% (0.0-3.0); Hemoglobin (Hb) 9.6 g/dL (12.0-16.0); O2 Tension (PaO2), arterial 137.9 mmHg (> 60.0); Potassium - ABG Lab 4.13 mmol/L (3.70-5.30); pH, Arterial 7.45 (7.35-7.45)
[2019-09-08 12:05] LABS: CO2 Tension 25.7 mmHg (35.0-45.0); Puncture Site RBRACH
[2019-09-08 12:06] LABS: ALV-art Gradient 186.475 (0-20)
[2019-09-08] MEDS ORDERED: Vancomycin 1 GM in Premix Bag 1 BAG IVPB SCH (12:45)
--- NOTE | 2019-09-08 16:34 | OP ---
DATE OF PROCEDURE: 09/08/2019 INDICATIONS FOR PROCEDURE: Ms. Ramirez is afebrile. She became less responsive this morning. Lungs remarkable for rhonchi. Heart has regular rhythm. Abdomen is soft. Stroke alert was called. She was taken to CT. Just prior to going to CAT scanner, pH was noted to be 7.02, CO2 of 78, and PO2 of 64. When she returned from the CAT scanner, she was immediately intubated fiberoptically. Her creatinine was 3.2 today and potassium was 4.5. Hemoglobin is 9.3. DESCRIPTION OF PROCEDURE: The patient did not require sedation. Bite block was placed in her mouth. Bronchoscope was introduced into her mouth. Her vocal cords were quickly visualized. She had copious amounts of saliva around her cords, but her glottis was clear. The scope was introduced into her trachea. Aspirated saliva, it was suctioned quickly out of her trach and a new endotracheal tube was advanced and secured above the main jayashree. Remainder of the tracheobronchial tree was remarkable only for clear secretions. IMPRESSION: 1. Respiratory failure, associated with declining mental status, associated with a cerebrovascular accident. 2. End-stage renal disease. PLAN: Mechanical ventilation and serial exams. Job ID: [id number]
[2019-09-08] MEDS: Norepinephrine 8 MG/0.9% NS 250 ML IVPB SCH (16:53)
[2019-09-08] MEDS: Pantoprazole 40 MG VIAL IVP SCH (16:57)
[2019-09-08] MEDS: Atorvastatin Calcium 40 MG TAB PO SCH (20:01)
--- NOTE | 2019-09-08 20:11 | PDOC.HOSPP ---
- Subjective Encounter Date: 09/08/19 Encounter Time: 11:00 Subjective: Pt seen for followup for CVA. Pt is intubated, mechanically ventilated, could not complete ROS. - Objective Vital Signs & Weight: Vital Signs (12 hours) Pulse 09/08/19 18:51 82 09/08/19 15:00 86 09/08/19 12:06 86 09/08/19 09:31 92 Weight Admit Weight 98 lb Weight 101 lb 6.602 oz Most Recent Monitor Data Heart Rate from ECG 81 NIBP 142/73 NIBP BP-Mean 96 Respiration from ECG 20 SpO2 99 I&O: 09/07/19 09/08/19 09/09/19 06:59 06:59 06:59 Intake Total 100 1388 Output Total 0 0 Balance 100 1388 Result Diagrams: 09/08/19 08:46 09/08/19 08:46 Additional Labs: Accuchecks 09/08/19 08:52 POC Glucose 224 H Labs and MARs reviewed by me EKG Reviewed by me: Yes (Tele: NSR) Hospitalist ROS - Review of Systems ROS unobtainable: due to endotracheal tube - Medication Medications: Active Medications Generic Name Dose Route Start Last Admin Trade Name Freq PRN Reason Stop Dose Admin Aspirin 300 mg 09/07/19 09:00 09/08/19 10:13 Aspirin CO 300 mg DAILY FRANKLIN Administration Atorvastatin Calcium 40 mg 09/07/19 21:00 09/07/19 19:43 Lipitor PO 40 mg HS FRANKLIN Administration Heparin Sodium (Porcine) 5,000 units 09/07/19 09:00 09/08/19 10:14 Heparin SC Not Given Q12HR FRANKLIN Norepinephrine Bitartrate 250 mls @ 0 mls/hr 09/07/19 21:35 09/08/19 16:53 Levophed IVPB 250 mls INF FRANKLIN Administration Protocol Titrate Piperacillin Sod/Tazobactam 100 mls @ 200 mls/hr 09/08/19 14:00 09/08/19 16: 50 Sod 2.25 gm/ Sodium Chloride IVPB 100 mls Q8HR FRANKLIN Administration Pantoprazole Sodium 40 mg 09/08/19 13:30 09/08/19 16:57 Protonix IVP 40 mg Q24H FRANKLIN Administration - Exam General - other findings: Intubated Eye: anicteric sclera ENT: normocephalic atraumatic ENT - other findings: ETT Neck: no thyromegaly, no lymphadenopathy Heart: RRR Respiratory: CTAB Gastrointestinal: soft, non-tender Skin: no rashes Neurological - other findings: L weakness Psychiatric - other findings: Unable to assess Hosp A/P - Plan Assessment and Plan 1. Acute ischemic CVA - rectal aspirin -pt had repeat CT brain today due to worsening weakness, no hemorrhagic transformation of the stroke. - continue Lipitor 2. Hypotension - continue vasopressors PRN - continue IV Vanc and Zosyn, cultures negative so far 3.Acute respiratory failure - Pt was intubated today AM for airway protection 4. ESRD on HD - dialysis per nephrology service 5. Elevated troponin - troponin elevation due to demand ischemia; consult cardiology DVT PPX: HepSQ. FULL CODE
[2019-09-08] MEDS ORDERED: fentaNYL Citrate/PF 2,000 MCG in Sodium Chloride 0.9% 60 ML IV SCH (20:45)
[2019-09-08] MEDS ORDERED: Propofol BOLUS 1,000 MG/100 ML VIAL IV PRN (20:45)
[2019-09-08] MEDS ORDERED: Lorazepam 2 MG/ML VIAL SLOW IVP PRN (20:45)
[2019-09-08] MEDS ORDERED: Morphine 2 MG/ML SYRINGE SLOW IVP PRN (20:45)
[2019-09-08] MEDS ORDERED: DISCONTINUE PREVIOUS NARCOTIC PAIN MEDICATIONS AND BENZODIAZEPINES FS SCH (20:45)
[2019-09-08] MEDS ORDERED: Fentanyl BOLUS 250 ML IVPB PRN (20:45)
[2019-09-09 04:27] LABS: #Basophils 0.1 thou/uL (0.0-0.2); #Lymphocytes 1.5 thou/uL (1.20-3.40); #Monocytes 1.1 thou/uL (0.11-0.59); #Neutrophils 15.7 thou/uL (1.40-6.50); %Basophils 0.3 % (0.0-1.0); %Eosinophils 0.2 % (0.0-10.0); %Lymphocytes 8.1 % (21.0-51.0); %Neutrophils 85.4 % (42.0-75.0); Hemoglobin 9.1 g/dL (12.0-16.0); Mean Corpuscular HGB CONC 32.7 g/dL (32.0-36.0); Mean Corpuscular Hemoglobin 29.1 pg (27.0-31.0); Platelet Count 201 thou/uL (130-400); RBC Distribution Width 16.3 % (11.5-14.5); Red Blood Cell (RBC) Count 3.12 mill/uL (4.20-5.40); White Blood Cell (WBC) Count 18.4 thou/uL (4.8-10.8)
[2019-09-09 04:45] LABS: Anion Gap 18 mmol/L (10-20); BUN (Urea Nitrogen) 43 mg/dL (9.8-20.1); Calc. Creatinine Clearance 8 mL/min (70-130); Carbon Dioxide 22 mmol/L (23-31); Chloride 100 mmol/L (98-107); Estimated GFR-MDRD 13; Glucose 204 mg/dL (83-110); Potassium 4.4 mmol/L (3.5-5.1); Sodium 136 mmol/L (136-145)
[2019-09-09] MEDS: Piperacillin/Tazobactam 2.25 GM in Sodium Chloride 0.9% 100 ML IVPB SCH ×3 (05:10→20:39)
[2019-09-09] MEDS: Propofol 1,000 MG/100 ML VIAL IV PRN ×3 (05:10→20:38)
[2019-09-09] MEDS: Aspirin 300 MG Suppository PR SCH (08:43)
[2019-09-09] MEDS: Heparin 5,000 UNITS/ML VIAL SC SCH ×2 (08:50→20:38)
--- NOTE | 2019-09-09 08:59 | PRG ---
DATE OF SERVICE: 09/09/2019 35 minutes of critical care time. SUBJECTIVE: The patient remains intubated on mechanical ventilation. She will wake up. She follows commands with the right side, it is flaccid on the left. OBJECTIVE: VITAL SIGNS: Temperature 97.7, pulse 74, blood pressure 144/77, O2 saturation 100%. She has been kept on Levophed drip at 7 mcg/minute in attempt to keep her blood pressure elevated. Total intake for 24 hours 963, output zero-she is a dialysis patient. HEENT: Unremarkable. NECK: No JVD. LUNGS: Clear anteriorly. CARDIOVASCULAR: S1 and S2. Obscured by holosystolic 3/6 murmur. ABDOMEN: Soft and nontender. EXTREMITIES: No clubbing, cyanosis, or edema. LABORATORY DATA: White blood cell count 18.4, hemoglobin 9, hematocrit 27.8, and platelet count 201. PH 7.45, pCO2 of 25, pO2 of 137 yesterday. Does not appear a blood gas was checked this morning, but we will get that done. Sodium 136, potassium 4.4, chloride 100, CO2 of 22, BUN 43, creatinine 4.1, glucose 204. ASSESSMENT: 1. Embolic stroke with profound left-sided hemiplegia. 2. Acute respiratory failure requiring mechanical ventilation-mainly intubated to protect airway. 3. End-stage renal disease, requiring hemodialysis. PLAN: 1. Check blood gas and adjust ventilator as necessary. 2. The patient is currently anticoagulated by the primary service. 3. Would suggest Cardiology consultation and ARPIT to further workup for embolic phenomenon since transthoracic echocardiogram was not good enough to visualize mitral valve adequately. 4. Initiate tube feeding. Job ID: [id number]
[2019-09-09] MEDS: Pantoprazole 40 MG VIAL IVP SCH (13:57)
[2019-09-09] MEDS: Norepinephrine 8 MG/0.9% NS 250 ML IVPB SCH (13:58)
[2019-09-09 15:57] LABS: Vancomycin, Random 24.4 ug/mL (See Comment)
--- NOTE | 2019-09-09 16:08 | PRG ---
DATE OF SERVICE: 09/09/2019 SUBJECTIVE: Patient is seen and examined in ICU. She is intubated and sedated. She is currently on propofol drip. The patient is also on Levophed drip and receiving Zosyn. She could not get hemodialysis yesterday as she became hypotensive. OBJECTIVE: VITAL SIGNS: BP 113/96, TX 79/mt, respiratory rate 18/mt GENERAL: Patient is intubated and sedated. HEENT: ET and OG tube + . No icterus. CVS: Regular rate. Rhythm normal. No murmurs. LUNGS: Transmitted breath sounds, decreased at bases. No wheezing. ABDOMEN: Soft. Bowel sounds present. EXTREMITIES: Left forearm AV fistula noted. No edema. PARTS COUNTERPERSON: Intubated on mechanical ventilator. PSYCHIATRIC: Not agitated. LABORATORY DATA: WBC 18.4, hemoglobin 9.1, hematocrit 27.8. Sodium 136, potassium 4.4, bicarb 22, BUN 43, creatinine 4.06. ASSESSMENT AND PLAN: 1. Chronic kidney disease, stage 5 - oliguric/anuric. Dialysis attempted yesterday, the patient could not tolerate due to hypotension. We will evaluate daily for renal replacement therapy. Dose medications per eGFR. Currently on Zosyn and Vancomycin. Monitor vancomycin trough levels 2. Hypotension. The patient is requiring Levophed drip to maintain Systolic blood pressure between 130-140 as recommended by Neurology. 3. Anemia. Continue to monitor hemoglobin and hematocrit and transfuse packed red blood cells p.r.n. with target hemoglobin greater than 8. 4. Acute embolic CVA-work up in progress to evaluate source of emboli Prognosis is poor due to multiple embolic CVA. Will discuss goals of care with pt's family. Job ID: [id number] [facility]
--- NOTE | 2019-09-09 16:19 | PRG ---
DATE OF SERVICE: 09/09/2019 SUBJECTIVE: Ms. Ramirez decompensated, became hypotensive and somnolent, had a CT which did not show hemorrhagic conversion and was intubated to protect her airway. Echocardiogram done showed EF 70%, [id number] mitral regurg, no aortic stenosis or regurgitation noted. OBJECTIVE: CURRENT VITAL SIGNS: T-max 98.3, BP 113/96, pulse 79, FiO2 40. GENERAL: She moves her head from time to time. HEENT: Pupils are about 2 mm and reactive. LUNGS: Symmetric air entry. HEART: S1 and S2. Regular rate. ABDOMEN: Soft, not distended. She is incontinent. Does not have a Casey catheter. She has a left hemiparesis. LABORATORY DATA: White cell count 18.4, hemoglobin 9.1, platelets 201 with 85% neutrophils. Sodium 136, creatinine 4.06. Troponin 0.667. Albumin 2.5. Liver profile normal. Microbiology thus far no growth at 48 hours. Two sets of blood cultures. ASSESSMENT AND DISCUSSION: End-stage renal disease, hypertension, acute cerebrovascular accident with multiple areas of distribution suggestive of an embolic phenomenon, hypotension, leukocytosis, so again dealing with either a bland emboli from atherosclerotic changes in the aorta or infectious endocarditis. She is on broad-spectrum antimicrobial coverage. In view of the multiple areas of infarct, the prognosis is poor. Job ID: [id number]
[2019-09-09] MEDS: Atorvastatin Calcium 40 MG TAB PO SCH (20:38)
--- NOTE | 2019-09-09 20:38 | CON ---
DATE OF CONSULTATION: 09/09/2019 REASON FOR CONSULTATION: Possible endocarditis. HISTORY OF PRESENT ILLNESS: Ms. Reanna Ramirez is an 83-year-old woman, who is critically ill in the intensive care unit on ventilator and pressors. Ms. Ramirez is an 83-year-old woman. She has a history of renal failure and is on hemodialysis. She has a history of hypertension, anemia, end-stage kidney disease, history of stroke, history of diabetes, elevation of pulmonary artery pressure, colon cancer, and previous colon resection. SOCIAL HISTORY: No alcohol or tobacco. FAMILY HISTORY: Negative for end-stage renal disease. HOME MEDICATIONS: Please see the nurse's notes. Currently, she is on antibiotics and pressors. REVIEW OF SYSTEMS: Not obtainable. She is intubated on the ventilator. PHYSICAL EXAMINATION: GENERAL: She opens her eyes to verbal stimuli. VITAL SIGNS: Blood pressure 137/70 and pulse 80 and sinus on the monitor. NECK: Veins normal. Carotid normal upstrokes. LUNGS: Clear. CARDIAC: Normal S1 and normal S2. There is a mid systolic murmur, left mid sternal border. No diastolic murmur. No S3. ABDOMEN: Soft and nontender. EXTREMITIES: Warm and dry. No clubbing or cyanosis. No edema. PERTINENT LABORATORY DATA: Hemoglobin is 9.1. Creatinine is 4.06. Troponin 0.667. The most recent blood cultures are negative, but she has positive blood cultures from 09/05, Streptococcus, the other is a gram positive cocci, looks like all these cultures are positive. Echocardiogram revealed an ejection fraction of 65% to 70%, mild concentric left ventricular hypertrophy, aortic valve is sclerotic, but not stenotic. The mitral valve certainly calcified, cannot exclude the possibility of endocarditis and cannot adequately assess this valve or vegetation in view of the calcium. ASSESSMENT: 1. Respiratory failure. 2. Hypotension. 3. End-stage renal disease. 4. Positive blood cultures, possible endocarditis. PLAN: 1. Continue current medical regimen. Tentatively planned for transesophageal echocardiogram early next week. 2. Increased troponin, probably demand ischemia. Job ID: [id number]
--- NOTE | 2019-09-09 22:26 | PDOC.HOSPP ---
- Subjective Encounter Date: 09/09/19 Encounter Time: 12:00 Subjective: THe patient is intubated. SHe responds to her name. She denies complaints currently. She seems drowsy - Objective Vital Signs & Weight: Vital Signs (12 hours) Temp Pulse Resp Pulse Ox 09/09/19 22:15 81 09/09/19 22:00 20 09/09/19 21:00 98.3 F 09/09/19 20:00 20 98 09/09/19 18:36 75 09/09/19 18:00 20 09/09/19 16:00 98.1 F 09/09/19 15:05 79 09/09/19 14:00 20 09/09/19 12:00 97.8 F 09/09/19 10:31 75 Weight Admit Weight 98 lb Weight 101 lb 6.602 oz Most Recent Monitor Data Heart Rate from ECG 79 NIBP 120/64 NIBP BP-Mean 82 Respiration from ECG 20 SpO2 100 I&O: 09/08/19 09/09/19 09/10/19 06:59 06:59 06:59 Intake Total 1388 963.5 500.9 Output Total 0 0 0 Balance 1388 963.5 500.9 Result Diagrams: 09/09/19 04:15 09/09/19 04:15 Hospitalist ROS - Review of Systems ROS unobtainable: due to endotracheal tube - Medication Medications: Active Medications Generic Name Dose Route Start Last Admin Trade Name Freq PRN Reason Stop Dose Admin Aspirin 300 mg 09/07/19 09:00 09/09/19 08:43 Aspirin OR Not Given DAILY FRANKLIN Atorvastatin Calcium 40 mg 09/07/19 21:00 09/09/19 20:38 Lipitor PO 40 mg HS FRANKLIN Administration Heparin Sodium (Porcine) 5,000 units 09/07/19 09:00 09/09/19 20:38 Heparin SC 5,000 units Q12HR FRANKLIN Administration Norepinephrine Bitartrate 250 mls @ 0 mls/hr 09/07/19 21:35 09/09/19 13:58 Levophed IVPB 250 mls INF FRANKLIN Administration Protocol Titrate Piperacillin Sod/Tazobactam 100 mls @ 200 mls/hr 09/08/19 14:00 09/09/19 20: 39 Sod 2.25 gm/ Sodium Chloride IVPB 100 mls Q8HR FRANKLIN Administration Pantoprazole Sodium 40 mg 09/08/19 13:30 09/09/19 13:57 Protonix IVP 40 mg Q24H FRANKLIN Administration Propofol 1,000 mg 09/08/19 20:45 09/09/19 20:38 Diprivan IV 10/08/19 20:45 1,000 mg INF PRN Administration TO ACHIEVE GOAL RASS Protocol - Exam General - other findings: intermittently drowsy. Intubated Eye: PERRL, anicteric sclera ENT: normocephalic atraumatic, no oropharyngeal lesions Neck: supple, symmetric, no JVD Heart: RRR, no murmur, no gallops, normal peripheral pulses Respiratory: CTAB, no wheezes, no rales Gastrointestinal: soft, non-tender, non-distended Extremities: no cyanosis, no clubbing, no edema Skin: normal turgor, no lesions, no rashes Hosp A/P - Plan ECHO: EF 65-70%, moderate MR, aortic valve sclerotic, mitral valve heavily calcified Chest Xray: normal Brain MRI: multifocal restricted diffusion subcortical and deep white matter, left cerebellar hemisphere, right cerebellar hemisphere and midbrain. This is an 83 year old female who presented with left sided weakness, found to stroke 1. 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 MRI brain showed multifocal infarcts. CT head negative for hemorrhagic transformation - on rectal aspirin and statin. Neuro following 2. #Acute hypoxic respiratory failure possibly from septic shock from endocarditis? - patient with hypotension requiring pressors. SHe has ECHO showing findings concerning for possible endocarditis? Chest Xray normal - continue vancomycin and zosyn. WBC still high at 18. Blood cultures negative - Cardiology was consulted, plan for ARPIT Next week 3. #Type II NSTEMI - troponin 0.667. ECHO showed no wall motion abnormalities. Will trend troponin 4. ESRD on HD - dialysis per nephrology service 5. Aemia - Hb 9, stable
[2019-09-10 00:33] LABS: CKMB 67.7 ng/mL (0-6.6)
[2019-09-10 04:29] LABS: #Eosinphils 0.1 thou/uL (0.0-0.7); #Lymphocytes 1.9 thou/uL (1.20-3.40); #Monocytes 1.2 thou/uL (0.11-0.59); #Neutrophils 15.4 thou/uL (1.40-6.50); %Basophils 0.1 % (0.0-1.0); %Eosinophils 0.3 % (0.0-10.0); %Lymphocytes 10.1 % (21.0-51.0); %Monocytes 6.6 % (0.0-10.0); %Neutrophils 82.9 % (42.0-75.0); Hemoglobin 8.3 g/dL (12.0-16.0); Mean Corpuscular HGB CONC 33.2 g/dL (32.0-36.0); Mean Corpuscular Hemoglobin 29.5 pg (27.0-31.0); Mean Corpuscular Volume 88.9 fL (78.0-98.0); Mean Platelet Volume 9.3 fL (7.4-10.4); Platelet Count 201 thou/uL (130-400); RBC Distribution Width 16.3 % (11.5-14.5); White Blood Cell (WBC) Count 18.6 thou/uL (4.8-10.8)
[2019-09-10] MEDS: Piperacillin/Tazobactam 2.25 GM in Sodium Chloride 0.9% 100 ML IVPB SCH (05:09)
[2019-09-10 05:11] LABS: Anion Gap 22 mmol/L (10-20); BUN (Urea Nitrogen) 50 mg/dL (9.8-20.1); Calc. Creatinine Clearance 7 mL/min (70-130); Calcium 7.9 mg/dL (7.8-10.44); Carbon Dioxide 18 mmol/L (23-31); Chloride 101 mmol/L (98-107); Estimated GFR-MDRD 11; Glucose 163 mg/dL (83-110); Potassium 4.6 mmol/L (3.5-5.1); Sodium 136 mmol/L (136-145)
[2019-09-10 06:03] LABS: CKMB 57.2 ng/mL (0-6.6); Critical Call CKMB RESULT DECREASING
[2019-09-10 06:57] LABS: Actual Bicarbonate (HCO3a) 16.2 mEq/L (22-28); Base Excess (BEa) -5.9 mEq/L (-2.0 to +3.0); Calcium, Ionized (arterial) 1.04 mmol/L (1.12-1.30); Carboxyhemoglobin (COHb) 1.8 gm% (0.0-3.0); Hemoglobin (Hb) 8.2 g/dL (12.0-16.0); O2 Tension (PaO2), arterial 131.2 mmHg (> 60.0); Potassium - ABG Lab 4.43 mmol/L (3.70-5.30)
[2019-09-10 07:27] LABS: CO2 Tension 21.4 mmHg (35.0-45.0); Puncture Site RBRACH
--- NOTE | 2019-09-10 09:12 | PRG ---
DATE OF SERVICE: 09/10/2019 TIME SPENT: 32 minutes of critical care time. SUBJECTIVE: The patient remains intubated on mechanical ventilation. OBJECTIVE: VITAL SIGNS: Her temperature is 98.0, pulse 98, respirations 21, O2 saturations 98%, and blood pressure 125/66. Intake for 24 hours, 500 and output 0. HEENT: Unremarkable. NECK: No JVD. LUNGS: Clear anteriorly. CARDIAC: S1 and S2. Regular. ABDOMEN: Soft. EXTREMITIES: No edema. She has a dialysis catheter in the right subclavian area. LABORATORY DATA: White blood cell count 18.6, hematocrit 24.9, and platelet count 201. PH 7.5, PCO2 of 21, PO2 131 on SIMV rate of 8, tidal volume 420, PEEP 5, pressure support 10, and FiO2 of 40%. Sodium 136, potassium 4.6, chloride 101, CO2 of 18, BUN 50, creatinine 4.7, and glucose 163. Troponin is 61. Cultures are growing out Streptococcus anginosus from September 06, 2019 - assume those cultures were drawn as an outpatient. ASSESSMENT: 1. Endocarditis. 2. Myocardial infarction. 3. Embolic stroke. 4. Acute respiratory failure, requiring mechanical ventilation. 5. End-stage renal disease, requiring hemodialysis. PLAN: Certainly, the elevation in troponin is indicative of ongoing myocardial ischemia, which is a poor prognostic sign. 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 I would recommend keeping her on mechanical ventilation. I will decrease her tidal volume given development of respiratory alkalosis. Primary service is making decision regarding anticoagulation. Prognosis extremely poor. Job ID: [id number]
--- NOTE | 2019-09-10 09:29 | CT ---
EXAM: CT brain without contrast HISTORY: Stroke COMPARISON: 09/08/2019; MRI brain 09/07/2019 TECHNIQUE: Multiple contiguous axial images were obtained and a CT of the brain without contrast. FINDINGS: There are scattered hypodensities in the subcortical and periventricular white matter consi stent with small vessel ischemic disease. There is no evidence of hydrocephalus, intracranial hemorrhage, or extra-axial fluid collection. The calvarium and overlying soft tissues are unremarkable. The visualized paranasal sinuses and masto id air cells are well aerated. IMPRESSION: Hypodensities likely represent a combination of small vessel ischemic disease and the mul tifocal infarcts seen on prior MRI.
[2019-09-10] MEDS: Aspirin 300 MG Suppository PR SCH (10:11)
[2019-09-10] MEDS: Heparin 5,000 UNITS/ML VIAL SC SCH ×2 (10:11→20:51)
--- NOTE | 2019-09-10 11:25 | RAD ---
SINGLE VIEW CHEST: HISTORY: Pneumonia. COMPARISON: 09/08/19 09/06/19 FINDINGS: A single view of the chest shows a normal sized cardiomediastinal silhouette with atherosclerotic elda cifications in the aorta. The dialysis catheter is unchanged in position. There is an endotracheal tu be with its tip approximately 2.3 cm from the jayashree. An NG tube is seen in the stomach. There are di ffuse multifocal air space opacities in the lungs. There may be small bilateral pleural effusions. IMPRESSION: 1. Appropriate position of lines and tubes. 2. Multifocal infiltrates. POS: EAA
--- NOTE | 2019-09-10 11:46 | PRG ---
DATE OF SERVICE: 09/10/2019 SUBJECTIVE: Ms. Ramirez remains unresponsive. She is on high-dose Levophed for maintaining blood pressure. OBJECTIVE: VITAL SIGNS: Her current blood pressure is 120/66, pulse 82, it is sinus. LUNGS: Clear. CARDIAC: There is a systolic murmur at the left mid sternal border. No diastolic murmur. No S3. ABDOMEN: Soft and nontender. EXTREMITIES: No edema. PERTINENT LABORATORY DATA: The troponin is gone up to 61. EKG has been ordered, but I do not see that on the chart. There are no ST changes on the rhythm strips on the chart. ASSESSMENT: 1. Sepsis. 2. End-stage renal disease. 3. Stroke. 4. Hypotension. 5. [id number] infarction. PLAN: 1. EKG will be reordered. 2. Transesophageal echo tomorrow to look to see if she has endocarditis. Job ID: [id number]
[2019-09-10] MEDS: cefTRIAXone\\ROCEPHIN 2 GM in Sodium Chloride 0.9% 100 ML IVPB SCH (11:49)
--- NOTE | 2019-09-10 12:18 | PDOC.HOSPP ---
- Objective Vital Signs & Weight: Vital Signs (12 hours) Temp Pulse Resp Pulse Ox 09/10/19 11:40 84 09/10/19 08:11 86 09/10/19 08:00 97.6 F 20 98 09/10/19 04:00 20 09/10/19 03:19 80 09/10/19 02:00 98.0 F 20 09/10/19 00:30 83 Weight Admit Weight 98 lb Weight 100 lb 8.493 oz Most Recent Monitor Data Heart Rate from ECG 83 NIBP 125/66 NIBP BP-Mean 85 Respiration from ECG 26 SpO2 98 I&O: 09/09/19 09/10/19 09/11/19 06:59 06:59 06:59 Intake Total 963.5 500.9 Output Total 0 0 0 Balance 963.5 500.9 0 Result Diagrams: 09/10/19 03:30 09/10/19 03:30 Hospitalist ROS - Medication Medications: Active Medications Generic Name Dose Route Start Last Admin Trade Name Freq PRN Reason Stop Dose Admin Aspirin 300 mg 09/07/19 09:00 09/10/19 10:11 Aspirin CO 300 mg DAILY FRANKLIN Administration Atorvastatin Calcium 40 mg 09/07/19 21:00 09/09/19 20:38 Lipitor PO 40 mg HS FRANKLIN Administration Heparin Sodium (Porcine) 5,000 units 09/07/19 09:00 09/10/19 10:11 Heparin SC 5,000 units Q12HR FR[facility]LIN Administration Norepinephrine Bitartrate 250 mls @ 0 mls/hr 09/07/19 21:35 09/09/19 13:58 Levophed IVPB 250 mls INF FRANKLIN Administration Protocol Titrate Ceftriaxone Sodium 2 gm/ 100 mls @ 200 mls/hr 09/10/19 11:00 09/10/19 11:49 Sodium Chloride IVPB 100 mls Q24HR FRANKLIN Administration Pantoprazole Sodium 40 mg 09/08/19 13:30 09/09/19 13:57 Protonix IVP 40 mg Q24H FRANKLIN Administration Propofol 1,000 mg 09/08/19 20:45 09/09/19 20:38 Diprivan IV 10/08/19 20:45 1,000 mg INF PRN Administration TO ACHIEVE GOAL RASS Protocol - Exam General - other findings: intubated, does not follow commands Eye: PERRL, anicteric sclera ENT: normocephalic atraumatic, no oropharyngeal lesions Neck: no JVD Heart: RRR, no murmur, no gallops, no rubs Respiratory: CTAB, no wheezes, no rales, no ronchi Gastrointestinal: soft, non-tender, non-distended, normal bowel sounds Extremities: no cyanosis, no clubbing, no edema Skin: normal turgor, no lesions, no rashes Neurological: cranial nerve grossly intact, normal sensation to touch, no focal deficits, no new deficit Musculoskeletal: normal tone, normal strength, no muscle wasting Hosp A/P - Plan ECHO: EF 65-70%, moderate MR, aortic valve sclerotic, mitral valve heavily calcified Chest Xray: normal Brain MRI: multifocal restricted diffusion subcortical and deep white matter, left cerebellar hemisphere, right cerebellar hemisphere and midbrain. This is an 83 year old female who presented with left sided weakness, found to stroke 1. Acute metabolic encephalopathy from ischemic CVA - presented with left sided paralysis. MRI brain showed multifocal infarcts. CT head negative for hemorrhagic transformation - repeat CT head negative this am - attempting to wean sedation, currently not following commands - continue aspirin and statin. Will hold on anticoagulation since likely not cardioembolic and more septic emboli 2. #Acute hypoxic respiratory failure possibly from septic shock from endocarditis # Strep anginosus bacteremia - patient with hypotension requiring pressors. SHe has ECHO showing findings concerning for possible endocarditis? Chest Xray normal - on vanc and zosyn. WBC 18. Discussed with Dr. Granados, treat with IV ceftriaxone for two weeks - plan for ARPIT this week 3. #Type II NSTEMI - troponin has trended up from 44 to 66. Repeat EKG shows normal sinus rhythm, prolonged QT. I will add magnesium level - cardiology aware - no need for anticoagulation 4. ESRD on HD - dialysis per nephrology service 5. Anemia - Hb 9, stable
[2019-09-10] MEDS: Pantoprazole 40 MG VIAL IVP SCH (13:29)
[2019-09-10] MEDS ORDERED: Vancomycin HCl 750 MG in Sodium Chloride 0.9% 250 ML 250 ML IVPB SCH (15:00)
[2019-09-10] MEDS: Propofol 1,000 MG/100 ML VIAL IV PRN (16:13)
--- NOTE | 2019-09-10 17:50 | PRG ---
DATE OF SERVICE: 09/10/2019 SUBJECTIVE: Patient is seen and examined in ICU. She continues to be intubated on mechanical ventilator. Patient is off sedation and she is awake and able to nod to the questions. She is still on Levophed drip. OBJECTIVE: VITAL SIGNS: MAP 85, pulse rate 89/minute, respiratory rate 23/minute. GENERAL: Patient is intubated, on sedation, does not seem to be in pain at present. HEENT: ET and OG tube noted. No icterus. CVS: Regular rate. Rhythm normal. No murmurs. LUNGS: Transmitted breath sounds. No wheezing. ABDOMEN: Soft. No tenderness. Bowel sounds present. EXTREMITIES: Left forearm AV fistula noted. No edema. 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 Able to nod to the questions. Moving right upper arm and a right lower arm spontaneously. Unable to move left upper arm and left lower extremity PSYCHIATRIC: Not agitated. LABORATORY DATA: WBC 18.6, hemoglobin 8.3, hematocrit 24.9. Sodium 136, potassium 4.6, bicarbonate 18, BUN 50, creatinine 4.70. ASSESSMENT AND PLAN: 1. Chronic kidney disease, stage 5 - Patient is oliguric. Etiology is likely ATN secondary to sepsis. Evaluate daily for renal replacement therapy. 2. Hypotension- Patient is requiring Levophed for hemodynamic support. Levophed might need to be continued if decision is made to start her on dialysis 3. Anemia. Continue to monitor hemoglobin and hematocrit. Check iron studies. 4. Acute embolic CVA-suspect septic emboli. Currently on Rocephin. Attempted to reach patient's daughter Ten Camejo at [phone] and left a message. Job ID: [id number] MTDD
[2019-09-10] MEDS: Norepinephrine 8 MG/0.9% NS 250 ML IVPB SCH (18:50)
[2019-09-10] MEDS: Atorvastatin Calcium 40 MG TAB PO SCH (20:52)
[2019-09-11 04:04] LABS: Anion Gap 23 mmol/L (10-20); BUN (Urea Nitrogen) 59 mg/dL (9.8-20.1); Calc. Creatinine Clearance 6 mL/min (70-130); Carbon Dioxide 19 mmol/L (23-31); Chloride 101 mmol/L (98-107); Estimated GFR-MDRD 9; Glucose 144 mg/dL (83-110); Potassium 4.7 mmol/L (3.5-5.1); Sodium 138 mmol/L (136-145)
[2019-09-11 05:53] LABS: Mean Corpuscular HGB CONC 33.4 g/dL (32.0-36.0); Mean Corpuscular Hemoglobin 29.4 pg (27.0-31.0); Mean Platelet Volume 8.8 fL (7.4-10.4); Platelet Count 201 thou/uL (130-400); RBC Distribution Width 16.6 % (11.5-14.5); Red Blood Cell (RBC) Count 2.73 mill/uL (4.20-5.40); White Blood Cell (WBC) Count 22.1 thou/uL (4.8-10.8)
[2019-09-11 06:49] LABS: Actual Bicarbonate (HCO3a) 17.5 mEq/L (22-28); CO2 Tension 28.8 mmHg (35.0-45.0); O2 Tension (PaO2), arterial 67.2 mmHg (> 60.0)
[2019-09-11 06:50] LABS: Analyzer IN Cardio OR; Base Excess (BEa) -6.3 mEq/L (-2.0 to +3.0); Calcium, Ionized (arterial) 1.06 mmol/L (1.12-1.30); Carboxyhemoglobin (COHb) 0.4 gm% (0.0-3.0); Potassium - ABG Lab 4.75 mmol/L (3.70-5.30)
[2019-09-11 06:51] LABS: Puncture Site RBRACH
[2019-09-11 08:05] LABS: Band 5 % (5-11); Lymphocytes 9 % (21-51); MDiff Complete? YES; Monocytes 6 % (0-10); Neutrophil 80 % (42-75); Nucleated RBC 1 % (0); Platelet Morphology Comment Appears Adequate; RBC Morphology Normal
[2019-09-11] MEDS: Aspirin 300 MG Suppository PR SCH (09:17)
[2019-09-11] MEDS: Heparin 5,000 UNITS/ML VIAL SC SCH ×2 (09:17→22:13)
--- NOTE | 2019-09-11 09:31 | PRG ---
DATE OF SERVICE: 09/11/2019 SUBJECTIVE: This morning, remains intubated on the vent. She is scheduled for ARPIT to rule out any endocarditis. She is slightly responsive. OBJECTIVE: VITAL SIGNS: Pulse 72, blood pressure 130/80, saturations 100%, respirations 29. CHEST: Reveals no wheezing. No crackles. CARDIAC: Normal S1 and S2. No gallops. ABDOMEN: Soft. NEUROLOGIC: Sedated. Does move all extremities. IMAGING: X-ray shows bilateral upper lung infiltrates. LABORATORY DATA: Shows 22,000 white count, H and H of 8 and 24, platelet count is 201. PO2 of 67, pCO2 of 27, pH of 7.40, rate of 12, 35%. Creatinine 5.8. ASSESSMENT: Multiorgan failure, respiratory failure, sepsis, endocarditis, renal failure, cerebrovascular accident, advanced age. PLAN: Post ARPIT, we will start nutrition. PT, supportive care. One-half hour of critical care time. Job ID: [id number]
[2019-09-11] MEDS ORDERED: Rocuronium Bromide 50 MG/5 ML VIAL IVP SCH (09:45)
--- NOTE | 2019-09-11 11:46 | RAD ---
CHEST 1 VIEW: INDICATION: History of pneumonia. COMPARISON: Prior exam dated 09/10/2019. FINDINGS: The patient remains intubated with gastric catheter placement. Right IJ dialysis catheter is unchang ed. Bilateral airspace disease is stable. Small bilateral pleural effusions persist. No pneumothor ax is evident. IMPRESSION: Stable tubes and lines. Stable bilateral airspace disease consistent with pneumonia with small bilateral pleural effusions. POS: BH
[2019-09-11] MEDS: cefTRIAXone\\ROCEPHIN 2 GM in Sodium Chloride 0.9% 100 ML IVPB SCH (12:00)
--- NOTE | 2019-09-11 12:59 | PRG ---
DATE OF SERVICE: 09/11/2019 SUBJECTIVE: Ms. Ramirez underwent transesophageal echo today. This will be outlined below. The patient is currently intubated and ventilated. OBJECTIVE: VITAL SIGNS: Her blood pressure 113/69, pulse 95. LUNGS: Clear. CARDIAC: There is a systolic murmur at the left midsternal border. No diastolic murmur. No S3. The transesophageal echo looks like there is a very large vegetation on the mitral valve with severe mitral regurgitation. LABORATORY DATA: The patient's blood cultures 4 out of 4 positive on 09/06/2019 for a Strep. ASSESSMENT: 1. Appears to have endocarditis, suspect she has embolized to her brain causing strokes and probably to her heart as well causing increased troponin. 2. End-stage renal disease. 3. Prognosis is likely poor in this unfortunate patient. She is currently on antibiotics. We will also discuss with Dr. Granados. Job ID: [id number]
--- NOTE | 2019-09-11 13:24 | OP ---
Job ID: [id number] MTDD
[2019-09-11] MEDS: Pantoprazole 40 MG VIAL IVP SCH (14:33)
[2019-09-11 14:40] VITALS: BP 115/56
--- NOTE | 2019-09-11 15:01 | PRG ---
DATE OF SERVICE: 09/11/2019 SUBJECTIVE: The patient was seen and examined in ICU and remains intubated. Family member at the bedside. OBJECTIVE: GENERAL: This is an elderly female, intubated. VITAL SIGNS: Temperature 97.5, pulse HEENT: Intubated. CVS: S1 and S2 heard. RESPIRATORY: Clear. GI: Abdomen is soft. MUSCULOSKELETAL: No edema. DERMATOLOGIC: No skin rash. NEUROLOGICAL: Intubated. LABORATORY DATA: Potassium is 4.7, BUN is 59, creatinine is 5.58. ASSESSMENT AND PLAN: 1. End-stage renal disease. Plan to have dialysis on Wednesday, , and Wednesday. 2. Edema, controlled. 3. Hypertension. 4. Anemia of chronic disease. 5. Acute hypoxic respiratory failure. We will continue on dialysis as tolerated. Job ID: [id number]
[2019-09-11 16:07] VITALS: BMI 18.8
--- NOTE | 2019-09-11 16:26 | OP ---
DATE OF PROCEDURE: 09/11/2019 INDICATIONS: This is an 83-year-old woman with sepsis. PROCEDURE PERFORMED: Transesophageal echocardiography. DESCRIPTION OF PROCEDURE: The patient was taken to the PACU and sedated by Anesthesiology. A transesophageal probe was placed into the distal esophagus and stomach. Echocardiographic images were obtained. Transesophageal probe was removed. FINDINGS: 1. Mild decrease in left ventricular systolic function. 2. There is a large mass noted attached to the mitral valve leaflets suggestive of vegetation. 3. Severe mitral regurgitation. 4. Normal aortic valve. 5. Mild tricuspid regurgitation. 6. Atherosclerotic debris in the descending aorta. IMPRESSION: Probable large vegetation noted attached to the mitral valve with severe MR. Job ID: [id number]
--- NOTE | 2019-09-11 18:52 | PRG ---
DATE OF SERVICE: 09/11/2019 SUBJECTIVE: Ms. Ramirez is intubated in the ICU. She is not very responsive. OBJECTIVE: VITAL SIGNS: The T-max is 98, BP 109/54, pulse 79, and O2 saturations are 100. GENERAL: Orotracheal intubation. LUNGS: Coarse breath sounds. HEART: S1 and S2. Regular rate. ABDOMEN: Soft, not distended. LABORATORY DATA: White cell count 22,000, hemoglobin 8, and platelets 201. Creatinine 5.58. Troponin 61. Blood culture, no growth, but the blood cultures from before she was admitted yielded Streptococcus anginosus. C difficile negative. Dr. Mensah did a ARPIT and it showed ruptured papillary muscle in the mitral valve with severe mitral regurgitation and a large mass noted attached to the mitral valve leaflet, suggestive of vegetation. Interestingly, there are 2 procedure reports transcribed and one with the ruptured papillary muscle interpretation and the other with a large vegetation in the mitral valve. Anyways, I discussed with Dr. Arce and he stated that the patient truly has a vegetation with multifocal emboli. ASSESSMENT AND DISCUSSION: 1. End-stage renal disease. 2. Hypertension. 3. Acute cerebrovascular accident with multiple areas distribution, suggestive of embolic phenomena. 4. Now evidence of mitral valve vegetation with Streptococcus anginosus. Continue Rocephin. She is not a candidate for cardiac intervention in terms of surgical procedure and replacement of valve at the moment. It is unlikely that she will ever be a candidate for that, so prognosis is certainly poor. Job ID: [id number]
--- NOTE | 2019-09-11 20:12 | PDOC.HOSPP ---
- Subjective Encounter Date: 09/11/19 Encounter Time: 09:30 Subjective: THe patient is intubated. She underwent ARPIT Today which showed large vegetation on mitral valve. Per cardiology poor prognosis The patient is not responsive and does not follow commands - Objective Vital Signs & Weight: Vital Signs (12 hours) Temp Pulse Resp BP 09/11/19 16:00 97.1 F L 09/11/19 14:38 86 115/56 L 09/11/19 12:00 97.7 F 36 H 09/11/19 11:11 103 H 122/68 09/11/19 10:00 29 H Weight Admit Weight 98 lb Weight 99 lb 13.91 oz Most Recent Monitor Data Heart Rate from ECG 79 NIBP 109/54 NIBP BP-Mean 72 Respiration from ECG 45 SpO2 100 I&O: 09/10/19 09/11/19 09/12/19 06:59 06:59 06:59 Intake Total 500.9 612.8 Output Total 0 0 0 Balance 500.9 612.8 0 Result Diagrams: 09/11/19 03:29 09/11/19 03:29 Hospitalist ROS - Review of Systems Constitutional: denies: fever, chills - Medication Medications: Active Medications Generic Name Dose Route Start Last Admin Trade Name Freq PRN Reason Stop Dose Admin Aspirin 300 mg 09/07/19 09:00 09/11/19 09:17 Aspirin [place] 300 mg DAILY FRANKLIN Administration Atorvastatin Calcium 40 mg 09/07/19 21:00 09/10/19 20:52 Lipitor PO 40 mg HS FRANKLIN Administration Heparin Sodium (Porcine) 5,000 units 09/07/19 09:00 09/11/19 09:17 Heparin SC 5,000 units Q12HR FRANKLIN Administration Norepinephrine Bitartrate 250 mls @ 0 mls/hr 09/07/19 21:35 09/10/19 18:50 Levophed IVPB 250 mls INF FRANKLIN Administration Protocol Titrate Ceftriaxone Sodium 2 gm/ 100 mls @ 200 mls/hr 09/10/19 11:00 09/11/19 12:00 Sodium Chloride IVPB 100 mls Q24HR FRANKLIN Administration Pantoprazole Sodium 40 mg 09/08/19 13:30 09/11/19 14:33 Protonix IVP 40 mg Q24H FRANKLIN Administration Propofol 1,000 mg 09/08/19 20:45 09/10/19 16:13 Diprivan IV 10/08/19 20:45 1,000 mg INF PRN Administration TO ACHIEVE GOAL RASS Protocol - Exam General - other findings: intubated Eye: PERRL, anicteric sclera ENT: normocephalic atraumatic, no oropharyngeal lesions Neck: no JVD Heart: RRR, no murmur, no gallops, no rubs Respiratory: CTAB, no wheezes, no rales, no ronchi Gastrointestinal: soft, non-tender, non-distended, normal bowel sounds Extremities: no cyanosis, no clubbing, no edema Skin: normal turgor, no lesions, no rashes Neurological: cranial nerve grossly intact, normal sensation to touch, no focal deficits, no new deficit Hosp A/P - Plan ECHO: EF 65-70%, moderate MR, aortic valve sclerotic, mitral valve heavily calcified Chest Xray: normal Brain MRI: multifocal restricted diffusion subcortical and deep white matter, left cerebellar hemisphere, right cerebellar hemisphere and midbrain. This is an 83 year old female who presented with left sided weakness, found to stroke 1. Acute metabolic encephalopathy from ischemic CVA - presented with left sided paralysis. MRI brain showed multifocal infarcts. CT head negative for hemorrhagic transformation - repeat CT head negative for hemorrhagic transformation 09/09 - still not following commands - continue aspirin and statin. 2. #Acute hypoxic respiratory failure possibly from septic shock from endocarditis # Strep anginosus bacteremia - patient with hypotension requiring pressors. Blood cultures positive for strep anginosis - on IV ceftriaxone, WBC increased. Will consider broadening again if WBC continues to increase - ARPIT showed large vegetation on mitral valve 09/10. Cardiology stated poor prognosis 3. #Type II NSTEMI - troponin has trended up from 44 to 66. Repeat EKG shows normal sinus rhythm, prolonged QT. Magnesium normal - cardiology aware - no need for anticoagulation 4. ESRD on HD - dialysis per nephrology service 5. Anemia - Hb 9, stable
[2019-09-11] MEDS: Atorvastatin Calcium 40 MG TAB PO SCH (22:13)
[2019-09-12] MEDS ORDERED: DOPamine 400 MG/D5W 250 ML 250 ML ONE (01:12)
[2019-09-12] MEDS ORDERED: DOPamine 400 MG/D5W 250 ML 250 ML IVPB SCH (01:30)
[2019-09-12 02:44] LABS: Band 9 % (5-11); Hemoglobin 6.1 g/dL (12.0-16.0); Hypochromia SLIGHT = 6-15 cells (100X) (0-5/hpf); Lymphocytes 5 % (21-51); MDiff Complete? YES; Mean Corpuscular HGB CONC 30.9 g/dL (32.0-36.0); Mean Corpuscular Hemoglobin 28.9 pg (27.0-31.0); Mean Corpuscular Volume 93.7 fL (78.0-98.0); Mean Platelet Volume 9.4 fL (7.4-10.4); Metamyelocyte 2 % (0-0); Monocytes 16 % (0-10); Neutrophil 68 % (42-75); Nucleated RBC 2 % (0); Platelet Count 72 thou/uL (130-400); Platelet Morphology Comment Appears Decreased; RBC Distribution Width 17.1 % (11.5-14.5); White Blood Cell (WBC) Count 34.9 thou/uL (4.8-10.8)
[2019-09-12] MEDS ORDERED: Albumin 5% 250 ML ONE (03:49)
[2019-09-12 04:06] LABS: Calc. Creatinine Clearance 5 mL/min (70-130); Calcium 8.3 mg/dL (7.8-10.44); Carbon Dioxide Less than 8 mmol/L (23-31); Chloride 103 mmol/L (98-107); Estimated GFR-MDRD 7; Glucose 13 mg/dL (83-110); Potassium 7.8 mmol/L (3.5-5.1); Sodium 138 mmol/L (136-145)
[2019-09-12] MEDS ORDERED: Dextrose 50% Abboject 50 ML SYRINGE ONE ×3 (04:06→05:00)
[2019-09-12 04:10] LABS: BUN (Urea Nitrogen) 64 mg/dL (9.8-20.1)
[2019-09-12] MEDS ORDERED: EPINEPHrine 1 MG/10 ML Abboject SYRINGE ONE ×2 (05:00→05:01)
[2019-09-12] MEDS ORDERED: Calcium Chloride 1 GM/10 ML Abboject SYRINGE ONE (05:00)
[2019-09-12] MEDS ORDERED: Lidocaine 2% Jelly 5 ML TUBE ONE (05:00)
[2019-09-12] MEDS ORDERED: Sodium Bicarb 50 MEQ/50 ML Abboject 8.4% SYRINGE ONE (05:00)
--- NOTE | 2019-09-12 06:04 | PDOC.BPN ---
<Darrion Danielle - Last Filed: 09/12/19 05:59> - Brief Progress Note Resident team responded to samra duran. On arrival chest compressions were underway and 1 dose of epinephrine had already been given. Over the span of 11 minutes pt had PEA at each pulse check which were timed by ACLS guidelines. At apporximately 11 min pulse check showed feint pulse on doppler which quickly faded and no pulse was palpated so chest compressions were continued. At the next pulse check a feint pulse was palpable briefly on R femoral artery. Prognosis was discussed with family (considering CVA, kidney disease, and mitral vegetation) which had just arrived and a joint decision was made to discontinue chest compressions. Overall 4 doses of epinephrine, and D50 were given, as well as one dose of calcium chloride 500mg and 1 amp bicarb. Time of 06. <Angelina Gastelum - Last Filed: 09/12/19 06:20> - Brief Progress Note Patient with multi-organ failure now with asystole. Samra duran called and continued per ACLS guidelines. Meds given as documented above. Patient on max pressors. Doppler pulse returned at a rate of 57 bpm after 11 mins of CPR. Unable to obtain blood pressure. Family arrived at this time. Requested no other interventions. After 3 to 5 mins of Doppler pulse, asystole returned with family at bedside. Time of 641. Aria
[2019-09-12 06:22] VITALS: TEMP 86.9
--- NOTE | 2019-09-12 07:16 | EKG ---
Test Reason : Blood Pressure : / mmHG Vent. Rate : 083 BPM Atrial Rate : 083 BPM P-R Int : 114 ms QRS Dur : 084 ms QT Int : 416 ms P-R-T Axes : -26 023 038 degrees QTc Int : 488 ms Poor data quality, interpretation may be adversely affected Normal sinus rhythm Nonspecific ST and T wave abnormality Prolonged QT Abnormal ECG When compared with ECG of 06-SEP-2019 22:34, ST now depressed in Anterior leads Confirmed by DR. Hina HSU ([id number]) on 09/12/2019 7:16:02 AM Referred By: BERHANE Confirmed By:DR. Hina HSU
--- NOTE | 2019-09-12 18:11 | DIS ---
DATE OF ADMISSION: 09/07/2019 DATE OF DISCHARGE: 09/12/2019 DATE OF EXPIRATION: 09/12/2019. DISCHARGE DIAGNOSES: 1. Acute hypoxic respiratory failure secondary to septic shock, secondary to endocarditis/Streptococcus anginosus bacteremia/pneumonia. 2. Acute metabolic encephalopathy secondary to stroke versus septic emboli to the brain. 3. Type 1 versus type 2 non-ST segment elevation myocardial infarction. 4. End-stage renal disease. 5. Anemia. CONSULTATIONS: 1. Dr. Cady Rivers with neurology 2. Dr. Octavio Martin with nephrology 3. Dr. Gray Zhou with critical care 4. Dr. Sarbjit Granados with infectious disease 5. Dr. Omer Arce with cardiology BRIEF HISTORY OF PRESENT ILLNESS: This is an 83-year-old female with a past medical history of ESRD, hypertension, hyperlipidemia, presented to the emergency room with lethargy. The patient was noted to have left-sided paralysis. She was noted to be hypotensive. She was initially given IV fluids and IV antibiotics, which were discontinued due to pulmonary edema. She was started on a levofed drip. The patient had a MRI of her brain on admission, which showed multifocal acute infarcts favoring an embolic phenomenon. HOSPITAL COURSE: The patient was started on aspirin and statin. She had repeat CT head on 09/07 and 09/09, which showed no hemorrhagic transformation. Her blood cultures on 09/05 were positive for Streptococcus anginosus. The patient was initially treated with IV vancomycin and Zosyn. On 09/06, the patient became less responsive. An ABG was performed, which showed a pH of 7.02 and a pCO2 of 78. She was intubated on 09/06. There was copious amounts of saliva around her cords. Chest Xray showed airspace disease. The patient continued to be less responsive even when sedation was weaned. Repeat CT scan of her brain done on 09/09 showed small-vessel ischemic infarcts and multifocal infarcts. There was discussion about starting anticoagulation due to possible embolic stroke, however it was decided not to since neurology and cardiology thought it was more septic emboli to the brain. Her IV antibiotics were deescalated to IV ceftriaxone per Infectious Disease recommendations. The patient's troponins were trended, which increased to 66. Cardiology did not think she was appropriate for cath given her instability but thought elevated troponins could have been CAD vs from endocarditis. Echocardiogram showed an EF of 65% to 70% with a mitral valve annulus that was heavily calcified. She underwent a ARPIT on 09/10 , which showed a ruptured papillary muscle and a large vegetation on the mitral valve. It was discussed with the family that her prognosis was poor. On the morning of 09/10, samra duran was called. The patient went into asystole. She underwent multiple rounds of CPR and did gain ROSC few times; however, ultimately had a junctional rhythm and was bradycardic with heart rate in the 40's. She was given dopamine without much success. and had recurrent asystole. The patient's family members were called eventually and aggressive intervention was stopped. The patient was pronounced at 5:42 am. DISCHARGE PHYSICAL EXAMINATION: The patient at 5:42 a.m. Autopsy not performed. PERTINENT LABORATORY DATA: CBC on 09/11: White count 34.9, hemoglobin 6.1, hematocrit 19.7, platelet count of 72. BMP on 09/11: Sodium 138, potassium 7.8, CO2 less than 8, creatinine 6.56, glucose 13. Troponin-I: 0.868, 0.774, 0.667, 44.276, 61.077. Hep B serology on 09/07: Negative. IMAGING STUDIES: Brain MRI on 09/06: Multifocal acute infarcts. Chest x-ray on 09/07: No evidence of pneumonia. CT brain 09/07: No evidence of hemorrhagic transformation. CT brain 09/09: Hypodensities representing combination of small vessel ischemic disease and multifocal infarcts. Chest x-ray on 09/09: Multifocal infiltrates. Chest x-ray on 09/10: Stable bilateral airspace disease consistent with pneumonia with small bilateral pleural effusions. Echo on 09/07: EF 65% to 70%, [id number] mitral annular calcification, moderate MR. DISCHARGE CONDITION: . Job ID: [id number] [facility]
--- NOTE | 2019-09-14 07:53 | EKG ---
Test Reason : STAT Blood Pressure : / mmHG Vent. Rate : 042 BPM Atrial Rate : 044 BPM P-R Int : 000 ms QRS Dur : 134 ms QT Int : 556 ms P-R-T Axes : 000 006 047 degrees QTc Int : 464 ms Atrial fibrillation with slow ventricular response Non-specific intra-ventricular conduction block Marked ST abnormality, possible anterior subendocardial injury Abnormal ECG When compared with ECG of 10-SEP-2019 11:46, (Unconfirmed) Atrial fibrillation has replaced Sinus rhythm Vent. rate has decreased BY 41 BPM QRS duration has increased ST more depressed in Anterior leads Nonspecific T wave abnormality, improved in Lateral leads Confirmed by DR. Linda LAST ([id number]) on 09/14/2019 7:53:38 AM Referred By: ANDRESSA DELGADO Confirmed By:DR. Linda LAST
== END 2019-09-12 05:42 | disposition expired | DRG 64 ==
LOC: ERS 22:22 → CCU 09-07 01:13
PROVIDERS: ADMIT Internal Medicine; ATTEND Internal Medicine
PROC: B246ZZ4 Ultrasonography of Right and Left Heart, Transesophageal (ICD-10-PCS; 2019-09-11)
PROC: 5A12012 Performance of Cardiac Output, Single, Manual (ICD-10-PCS; principal; 2019-09-12)
DX: I63.40 Cerebral infarction due to embolism of unspecified cerebral artery (principal); A40.8 Other streptococcal sepsis; J96.01 Acute respiratory failure with hypoxia; R65.21 Severe sepsis with septic shock; G93.41 Metabolic encephalopathy; N18.6 End stage renal disease; G93.6 Cerebral edema; I21.A1 Myocardial infarction type 2; G81.94 Hemiplegia, unspecified affecting left nondominant side; E87.1 Hypo-osmolality and hyponatremia; I38 Endocarditis, valve unspecified; I12.9 Hypertensive chronic kidney disease with stage 1 through stage 4 chronic kidney disease, or unspecified chronic kidney disease; K21.9 Gastro-esophageal reflux disease without esophagitis; D63.1 Anemia in chronic kidney disease; G83.89 Other specified paralytic syndromes; E78.5 Hyperlipidemia, unspecified; I95.9 Hypotension, unspecified; E11.22 Type 2 diabetes mellitus with diabetic chronic kidney disease; R29.810 Facial weakness; I25.10 Atherosclerotic heart disease of native coronary artery without angina pectoris; Z99.2 Dependence on renal dialysis; Z88.1 Allergy status to other antibiotic agents; Z87.891 Personal history of nicotine dependence; Z88.8 Allergy status to other drugs, medicaments and biological substances; Z90.49 Acquired absence of other specified parts of digestive tract; Z87.442 Personal history of urinary calculi
CPT/HCPCS: 36415; 36416; 36556; 70450; 70551; 71045; 80048; 80053; 80061; 80202; 82553; 82805; 83605; 83735; 84145; 84484; 85014; 85018; 85025; 86140; 87040; 87324; 87340; 87449; 90935; 93005; 93010; 93306; 93312; 94002; 94003; 94760; 96365; 99292; C9113; G0257; J0171; J0696; J1265; J1644; J2543; J2704; J3370; J3490; J7050; P9045